=== PATIENT | female | born 1990 | race Caucasian/White ===

== ENCOUNTER 2024-12-20 10:19 | Emergency (ER) | payer OTHER, SELFPAY ==
[2024-12-20 10:32] VITALS: BP 138/83; PULSE 114; RESP 18; TEMP 36.5; O2SAT 97
--- NOTE | 2024-12-20 10:42 | ED.URI ---
HPI - URI/Sore Throat General Chief Complaint: Upper Respiratory Infection Stated Complaint: Sore Throat,Coughing, body aches Time Seen by Provider: 12/20/24 11:11 Source: patient, RN notes reviewed and old records reviewed Mode of arrival: ambulatory Limitations: no limitations History of Present Illness HPI Narrative: patient presents with complaints of 8 days of sinus pain and pressure that worsened significantly over the past 72 hours. She reports that she copious amounts of postnasal drainage causing a sore throat and nausea. Reports that she is not having any abdominal pain or actual vomiting, but nausea that she is having secondary to drainage is making it difficult for her to eat and drink. She is taking [id number] medications for her symptoms with minimal relief. She denies any injury or trauma. She voices no other concerns or complaints today. Related Data Allergies Allergy/AdvReac Type Severity Reaction Status Date / Time oxycodone Allergy Intermediate Swelling Verified 12/20/24 10:49 Review of Systems Review of Systems: All systems reviewed & are unremarkable except as noted in HPI and below Constitutional: Constitutional: Reports no additional constitutional complaints, Reports body ache(s), Reports chills, Reports headache(s) and Reports lethargy ENT: Reports system reviewed and no additional complaints, except as documented, Reports headache(s), Reports nasal congestion, Reports nasal discharge, Reports sinus pain and Reports sinus pressure Cardiovascular: Cardiovascular: Reports no additional cardiovascular complaints Respiratory: Respiratory: Reports no additional respiratory complaints Gastrointestinal: Gastrointestinal: Reports no additional gastrointestinal complaints and Reports nausea PMFSH Comments At the time of my signature, I reviewed and agree with the nursing past medical, surgical, social, and family history. There is no relevant family history pertinent to the patient complaint. Exam Const: General: cooperative, no acute distress, alert and awake Orientation/consciousness: oriented to person, oriented to place and oriented to time HENMT: Head: normal to inspection Ears: TM abnormal with fluid behind the TM bilateral Face/Nose/Sinus: sinus tenderness Mouth: Yes moist mucous membranes Throat: posterior oropharynx abnormal erythema, postnasal drainage and tonsils absent Resp: Effort & Inspection: normal respiratory effort and able to speak in complete sentences Auscultation: clear to auscultation bilaterally, no crackles, no rales, no rhonchi and no wheezes Cardio: Palpation: normal PMI Rate: regular rate Rhythm: regular rhythm Heart sounds: S1 normal heart sound present and S2 normal heart sound present GI: Auscultation: normal bowel sounds Neuro: General: oriented to person, oriented to place and oriented to time Cranial nerves: Yes CN's II-XII intact bilaterally Psych: Appearance: grossly normal Thought process: Normal thought process present Insight: Good insight present (Psych) Judgement: Good judgement present (Psych) Course Course Level of Care: Express Care Visit Vital Signs Vital signs: Vital Signs Temperature 97.7 F 12/20/24 10:32 Pulse Rate 114 H 12/20/24 10:32 Respiratory Rate 18 12/20/24 10:32 Blood Pressure 138/83 12/20/24 10:32 Pulse Oximetry 97 12/20/24 10:32 Oxygen Delivery Room Air 12/20/24 10:32 Temperature 97.7 F 12/20/24 10:32 Pulse Rate 114 H 12/20/24 10:32 Respiratory Rate 18 12/20/24 10:32 Blood Pressure 138/83 12/20/24 10:32 Pulse Oximetry 97 12/20/24 10:32 Oxygen Delivery Room Air 12/20/24 10:32 Reviewed MDM - URI/Sore Throat MDM Narrative Medical decision making narrative: History and exam consistent with sinusitis. Patient nontoxic appearing, stable for discharge home on p.o. antibiotic therapy. She is complaining of nausea. Zofran prescribed to facilitate being able to take medications properly. Discharge instructions reviewed with patient, as well as provided in writing per nursing staff. The instructions also include specific and strict return/GO TO THE ER as well as f/u information. All questions have been answered, and the patient deny any further questions with discharge and discharge plan. Some parts of this dictation were generated by voice recognition software and may contain typographical and/or grammatical inaccuracies. Differential Diagnosis Differential diagnosis: Likely upper respiratory infection, otitis media, viral infection, influenza and pharyngitis Medical Records Attestation: I reviewed the patient's medical records. Lab Data Attestation: I reviewed the patient's lab results. Labs: Lab Results 12/20/24 12/20/24 Range/Units 11:20 11:21 POC Influenza A Ag Negative (Negative) POC Influenza B Ag Negative (Negative) POC SARS CoV-2 Ag Negative (Negative) Discharge Plan Discharge Clinical Impression: Sinusitis Qualifiers: Sinusitis location: frontal Chronicity: acute Recurrence: not specified as recurrent Qualified Code(s): J01.10 - Acute frontal sinusitis, unspecified Patient Disposition: Home, Self-Care Condition: Stable Instructions: Antibiotic Form, Sinusitis (ED) Additional Instructions: Take medications as prescribed. Follow with primary care provider. Emergency department for new or worse symptoms Patient Language: [place] Prescriptions: New amoxicillin-pot clavulanate 875-125 mg tablet 1 tablet PO Q12H Qty: 14 0RF ondansetron 4 mg tablet,disintegrating 4 mg PO Q6H PRN (Reason: nausea and vomiting) Qty: 20 0RF Follow-up/Referrals: UNKNOWN,DOCTOR [Primary Care Provider] - Time of Disposition: 11:21
--- OUTSIDE RECORDS SUMMARY | 2024-12-20 11:17 | XMS_ITS | Clinical Summary ---
Author Organization [facility] Address [address] [place] [address] Care Team Providers Care Stone Operator Name Role Phone Unavailable Primary Care Provider Unavailabl e Allergies Active Allergy Reactions Criticality Noted Date Comments Meperidine Hives Low 03/10/2019 Other reaction(s): Hives Other reaction(s): Hives Other reaction(s): Hives Other reaction(s): Hives Other reaction(s): Hives Other reaction(s): Hives Other reaction(s): Hives Other reaction(s): Hives Other reaction(s): Hives Other reaction(s): Hives Other reaction(s): Hives Other reaction(s): Hives Medications [id number] C ACID ORAL Take by mouth. Active buPROPion (WELLBUTRIN) 37.5 MG tablet 04/11/2022 Acti ve buPROPion XL (WELLBUTRIN XL) 150 mg 24 hr tablet 04/12/2022 Active escitalopram (LEXAPRO) 10 mg tablet Take 1/2 tablet for 7 days then increase to 1 tablet in the morning 07/16/2021 Active Active Problems Problem Noted Date Diagnosed Date 04/01/2022 Overview (08/05/2022): Dating: uLMP, by 8 week US Rh status: pos Indication for bASA: no Genetics: low risk Anatomy: scheduled Gender: its a girl! DMS: early DMS today GBS: Tdap: Flu: [ ] Offer COVID booster BCM: B/B: Delivery planning/Pain control: Class 3 severe obesity witho ut serious comorbidity with body mass index (BMI) of 40.0 to 44.9 in adult (CMS/[facility]) 12/24/2021 Overview (08/22/2022): --Growth US q 4 wks -- echo pending --Wkly BPP after 36 wks / plan for delivery by 40 wks unless otherwise indicated Anxiety 07/09/2021 Overview (08/05/2022): Continues on wellbutrin daily Feels stable on this regimen Discussed risks and benefits of keeping on this medication because she is stable vs changing to new regimen during this stressful time Recommend keeping medication as is for now. Can discuss considerations closer to delivery again Social History Tobacco Use Types Packs/Day Years Used Date Smoking Tobacco: Never Smokeless Tobacco: Never Tobacco Cessation:Counseling Given: Not Answered Alcohol Use Standard Drinks/Week Comments Not Currently 0 (1 standard drink = 0.6 oz pur e alcohol) Comments Unknown Sex and Gender Information Value Date Recorded Sex Assigned at Not on file Legal Sex Female 11:11 AM PST Gender Identity Not on file Sexual Orientation Not on file Last Filed Vital Signs Vital Sign Reading Time Taken Comments Blood Pressure 126/72 08/20/2022 5:34 PM CDT Pulse - - Temperature - - Respiratory Rate - - Oxygen Saturation - - Inhaled Oxygen Concentration - - Weight - - Height - - Body Mass Index - - Plan of Treatment Health Maintenance Due Date Last Done Comments Periodontal Maintenance 1990 Velscope Screening 11/07/2016 05/08/2016 Dental X-Ray: Panoramic 05/09/2019 05/08/2016 Dental Oral Exam 02/03/2023 08/05/2022, 05/08/2016 Dental X-Ray: Bitewings 02/03/2023 08/05/2022 Scaling and Root Planing 09/05/2024 022, 08/22/2022, 08/20/2022, Additional history exists Dental X-Ray: Full Mouth 08/06/2025 08/05/2022 Procedures Procedure Name Priority Date/Time Associated Diagnosis Comments LL PERIODONTAL SCALING AND ROOT PLANING - ONE TO THREE TEETH PER QUADRANT Routine 08/22/2022 2:00 PM CDT INTRAORAL - COMPREHENSIVE SERIES OF RADIOGRAPHIC IMAGES Routine 08/05/2022 1:00 PM CDT COMPREHENSIVE ORAL EVALUATION - NEW OR ESTABLISHED PATIENT Routine 08/05/2022 1:00 PM CDT PANORAMIC RADIOGRAPHIC IMAGE Routine 05/08/2016 1:00 AM MDT ADJUNCTIVE PRE-DIAGNOSTIC TEST THAT AIDS IN DETECTION OF MUCOSAL ABNORMALITIES Routine 05/08/2016 1:00 AM MDT from Last 3 Months or Most Recently Relevant to Health Maintenance Insurance
--- OUTSIDE RECORDS SUMMARY | 2024-12-20 11:17 | XMS_ITS | Encounter Summary ---
Author Organization [facility] Address [address] [place] [address]. [place] [address] [place] [address] Care Team Providers Care Engineer Internship Name Role Phone Susie Montilla NP Primary Care Provider [phone] Encounter Details Date Type Department Care Team (Late st Contact Info) Description 05/20/2023 kooldiner Message Enc [facility] Family Medicine - [place] [address] [place], [place] [address] Susie Montilla, DAWOOD [address] [place] [address] Wellbutrin Refill Social History Tobacco Use Types Packs/Day Years Used Date Smoking Tobacco: Never Passive Smoke Exposure: Never Smokeless Tobacco: Never Alcohol Use Standard Drinks/Week Comments Yes 0 (1 standard drink = 0.6 oz pur e alcohol) Rare, maybe once a month Humiliation, Afraid, Rape, and Kick questionnair e Answer Date Recorded Within the last year, have y ou been afraid of your partner or ex-partner? No 10/30/2022 Within the last year, have y ou been humiliated or emotionally abused in other ways by your partner or ex-partner? No Within the last year, have y ou been kicked, hit, slapped, or otherwise physically hurt by your partner or ex-partner? No 10/30/2022 Within the last year, have y ou been raped or forced to have any kind of sexual activity by your partner or ex-partner? No 10/30/2022 Social Connection and Isolat ion Panel [NHANES] Answer Date Recorded In a typical week, how many times do you talk on the phone with family, friends, or neighbors? More than three times a week 10/30/2022 How often do you get togethe r with friends or relatives? More than three times a week 10/30/2022 How often do you attend chur ch or yarsanism services? 1 to 4 times per year 10/30/2022 Do you belong to any clubs o r organizations such as anglican groups, unions, fraternal or athletic groups, or school groups? No 10/30/2022 How often do you attend meet ings of the clubs or organizations you belong to? Never 10/30/2022 Are you , , di vorced, , never , or living with a partner? 10/30/2022 AUDIT-C Answer Date Recorded Q1: How often do you have a drink containing alcohol? Never 10/30/2022 Q2: How many drinks containi ng alcohol do you have on a typical day when you are drinking? Patient does not drink Q3: How often do you have si x or more drinks on one occasion? Never 10/30/2022 Overall Financial Resource Strain (CARDIA) Answe r Date Recorded How hard is it for you to pa y for the very basics like food, housing, medical care, and heating? Not hard at all 10/30/2022 PHQ-2 Answer Date Recorded Patient Health Questionnaire-2 Score 1 [facility] Answer Date Recorded Do you feel stress - tense, restless, nervous, or anxious, or unable to sleep at night because your mind is troubled all the time - these days? Not at all 10/30/2022 Exercise Vital Sign Answer Date Recorde d On average, how many days pe r week do you engage in moderate to strenuous exercise (like a brisk walk)? 4 days 10/30/2022 On average, how many minutes do you engage in exercise at this level? 30 min 10/30/2022 Hunger Vital Sign Answer Date Recorded Within the past 12 months, y ou worried that your food would run out before you got the money to buy more. Never true 10/30/20 22 Within the past 12 months, t he food you bought just didn't last and you didn't have money to get more. Never true 10/30/2022 PRAPARE - Transportation Answer Date Re corded In the past 12 months, has l ack of transportation kept you from medical appointments or from getting medications? No 05/2022 In the past 12 months, has l ack of transportation kept you from meetings, work, or from getting things needed for daily living? No 10/30/2022 Housing Stability Vital Sign Answer Aman e Recorded In the last 12 months, was t here a time when you were not able to pay the mortgage or rent on time? No 10/30/2022 In the last 12 months, how many places have you lived? 2 10/30/2022 In the last 12 months, was t here a time when you did not have a steady place to sleep or slept in a care home (including now)? No 10/30/2022 Depression Answer Date Recor ded Last EPDS Total Score 2 11/03/2022 Last EPDS Self Harm Result Sometimes 11/03 Comments No Sex and Gender Information Value Date Recorded Sex Assigned at Not on file Legal Sex Female 6:06 PM CDT Gender Identity Not on file Sexual Orientation Not on file documented as of this encounter Functional Status * RETIRED Are you deaf or do you have serious difficulty hearing Answer Date of Assessment Author Status No 10/30/2022 8:32 PM FAMILY PROTECTION SPECIALIST Activ e * RETIRED Are you blind or do you have serious difficulty seeing, even when wearing glasses? Answer Date of Assessment Author Status No 10/30/2022 8:32 PM FAMILY PROTECTION SPECIALIST Activ e * Do you have serious difficulty walking or climbing stairs? Answer Date of Assessment Author Status No 10/30/2022 8:32 PM Eneida Whitman RN Active * Do you have difficulty dressing or bathing? Answer Date of Assessment Author Status No 10/30/2022 8:32 PM Eneida Whitman RN Active * Because of a physical, mental, or emotional condition, do you have difficulty doing errands alone such as visiting a doctor's office or shopping? Answer Date of Assessment Author Status No 10/30/2022 8:32 PM FAMILY PROTECTION SPECIALIST Wells, Eneida C, RN Active documented as of this encounter Mental Status * Because of a physical, mental, or emotional condition, do you have serious difficulty concentrating, remembering, or making decisions? Answer Entry Date Author Status No 10/30/2022 8:32 PM FAMILY PROTECTION SPECIALIST Eneida Ulrich RN Active documented in this encounter Plan of Treatment Not on file documented as of this encounter Visit Diagnoses Not on filedocumented in this encounter Additional Health Concerns Infection Onset Date Last Indicated Resolved Time COVID-19 Rule Out 11/27/2023 11/27/2023 11/27/2023 2:24 PM FAMILY PROTECTION SPECIALIST COVID-19 Rule Out 01/21/2024 01/21/2024 01/21/2024 4:27 PM FAMILY PROTECTION SPECIALIST Assessment Noted Time PHQ-9 Depression Total Score: 11 023 11:20 AM CDT documented as of this encounter Care Teams Engineer Internship Relationship Specialty Start Date End Date Susie Montilla NP [address] [place] [address] PCP - General NURSE PRACTITIONER 03/10/23 documented as of this encounter
--- OUTSIDE RECORDS SUMMARY | 2024-12-20 11:17 | XMS_ITS | Encounter Summary ---
Author Organization [facility] Address [address] [place] [address] Care Team Providers Care Underwriting Support Specialist Name Role Phone Unavailable Primary Care Provider Unavailabl e Prior Encounters Date Type Department Care Team Description 08/22/2022 Travel 08/22/2022 2:00 PM CDT Office Visit [facility] [address] [place] [address] Roma Casey, [facility] 08/20/2022 Travel 08/20/2022 3:00 PM CDT Office Visit [facility] [address] [place] [address] Roma Casey, [facility] 08/05/2022 Travel 08/05/2022 1:00 PM CDT Office Visit [facility] [address] [place] [address] Maya Lake, [place] 07/10/2022 Travel 07/10/2022 12:00 PM CDT Office Visit [facility] [address], [address] [place] [address] Brie Rivera, DMD 12/13/2019 Converted 13x Documents [facility] [address] [place] [phone] <No scans attached> 12/13/2019 Converted CPS Chart Documents [facility] [address], [address] [place] [phone] <No scans attached> 12/13/2019 Converted CPS Chart Documents [facility] [address], [address] [place] [phone] <No scans attached> 12/13/2019 Converted 13x Documents [facility] [address] [place] [phone] <No scans attached> Last Filed Vital Signs Vital Sign Reading Time Taken Comments Blood Pressure 126/72 08/20/2022 5:34 PM CDT Pulse - - Temperature - - Respiratory Rate - - Oxygen Saturation - - Inhaled Oxygen Concentration - - Weight - - Height - - Body Mass Index - - Plan of Treatment Not on file Procedures Procedure Name Priority Date/Time Associated Diagnosis Comments TOPICAL APPLICATION OF FLUORIDE VARNISH Routine 08/22/2022 2:00 PM CDT UL PERIODONTAL SCALING AND ROOT PLANING - ONE TO THREE TEETH PER QUADRANT Routine 08/22/2022 2:00 PM CDT LL PERIODONTAL SCALING AND ROOT PLANING - ONE TO THREE TEETH PER QUADRANT Routine 08/22/2022 2:00 PM CDT ORAL HYGIENE INSTRUCTIONS Routine 2021 3:00 PM CDT LR PERIODONTAL SCALING AND ROOT PLANING - ONE TO THREE TEETH PER QUADRANT Routine 08/20/2022 3:00 PM CDT UR PERIODONTAL SCALING AND ROOT PLANING - ONE TO THREE TEETH PER QUADRANT Routine 08/20/2022 3:00 PM CDT INTRAORAL PHOTO Routine 08/05/2022 1:00 PM CDT INTRAORAL PHOTO Routine 08/05/2022 1:00 PM CDT INTRAORAL PHOTO Routine 08/05/2022 1:00 PM CDT INTRAORAL PHOTO Routine 08/05/2022 1:00 PM CDT INTRAORAL - COMPREHENSIVE SERIES OF RADIOGRAPHIC IMAGES Routine 08/05/2022 1:00 PM CDT COMPREHENSIVE ORAL EVALUATION - NEW OR ESTABLISHED PATIENT Routine 08/05/2022 1:00 PM CDT 31 CEREC CROWN Routine 08/05/2022 12:00 AM CDT 31 ROOT CANAL Routine 08/05/2022 12:00 AM CDT BITEWING - SINGLE RADIOGRAPHIC IMAGE Routine 07/10/2022 12:00 PM CDT ADDITIONAL X-RAY Routine 07/10/2022 12:0 0 PM CDT LIMITED ORAL EVALUATION - PROBLEM FOCUSED Routine 07/10/2022 12:00 PM CDT MISSED APPOINTMENT Routine 11/26/2016 1: 00 AM [facility] INTEL RECRUITER CONSULTATION Routine 2015 1:00 AM MDT ADJUNCTIVE PRE-DIAGNOSTIC TEST THAT AIDS IN DETECTION OF MUCOSAL ABNORMALITIES Routine 05/08/2016 1:00 AM MDT ORAL HYGIENE INSTRUCTIONS Routine 2015 1:00 AM MDT PROPHYLAXIS - ADULT Routine 05/08/2016 1 :00 AM MDT COMPREHENSIVE ORAL EVALUATION - NEW OR ESTABLISHED PATIENT Routine 05/08/2016 1:00 AM MDT PANORAMIC RADIOGRAPHIC IMAGE Routine 05/08/2016 1:00 AM MDT BITEWINGS - FOUR RADIOGRAPHIC IMAGES Routine 05/08/2016 1:00 AM MDT SINGLE X-RAY Routine 05/08/2016 1:00 AM MDT SINGLE X-RAY Routine 05/08/2016 1:00 AM MDT SINGLE X-RAY Routine 05/08/2016 1:00 AM MDT SINGLE X-RAY Routine 05/08/2016 1:00 AM MDT SINGLE X-RAY Routine 05/08/2016 1:00 AM MDT SINGLE X-RAY Routine 05/08/2016 1:00 AM MDT INTRAORAL PHOTO Routine 05/08/2016 1:00 AM MDT INTRAORAL PHOTO Routine 05/08/2016 1:00 AM MDT INTRAORAL PHOTO Routine 05/08/2016 1:00 AM MDT INTRAORAL PHOTO Routine 05/08/2016 1:00 AM MDT INTRAORAL PHOTO Routine 05/08/2016 1:00 AM MDT INTRAORAL PHOTO Routine 05/08/2016 1:00 AM MDT INTRAORAL PHOTO Routine 05/08/2016 1:00 AM MDT INTRAORAL PHOTO Routine 05/08/2016 1:00 AM MDT INTRAORAL PHOTO Routine 05/08/2016 1:00 AM MDT INTRAORAL PHOTO Routine 05/08/2016 1:00 AM MDT CANCELLED APPOINTMENT Routine 05/01/2016 1:00 AM MDT Visit Diagnoses Not on file Insurance PPO
--- OUTSIDE RECORDS SUMMARY | 2024-12-20 11:17 | XMS_ITS | Encounter Summary ---
Author Organization [facility] Address [address] [place] [address]. [place] [address] [place] [address] Care Team Providers Care Hospitalist Name Role Phone Susie Montilla NP Primary Care Provider [phone] Encounter Details Date Type Department Care Team (Late st Contact Info) Description 01/26/2024 Curtis Berryman & Son Cremation Message Enc [facility] Family Medicine - [place] [address] [place], [place] [address] Susie Montilla, DAWOOD [address] [place] [address] Follow up Social History Tobacco Use Types Packs/Day Years [...] often do you attend chur ch or roman catholic services? 1 to 4 times per year 10/30/2022 Do you belong to any clubs o r organizations such as oriental orthodox groups, unions, fraternal or athletic groups, or [...] Recorded Patient Health Questionnaire-2 Score 1 03/12/2023 [facility] Answer Date [...] the money to buy more. Never true 12/07/20 22 Within the past 12 months, t [...] place to sleep or slept in a senior care (including now)? No 10/30/2022 Depression Answer Date [...] Assessment Author Status No 10/30/2022 8:32 PM C APPLICATION DEVELOPER Activ e * RETIRED Are you blind or do you have serious difficulty seeing, even when wearing glasses? Answer Date of Assessment Author Status No 10/30/2022 8:32 PM C APPLICATION DEVELOPER Activ e * Do you have serious [...] Assessment Author Status No 10/30/2022 8:32 PM C APPLICATION DEVELOPER Wells, Eneida C, RN Active documented as of this encounter Mental Status * Because of a physical, mental, or emotional condition, do you have serious difficulty concentrating, remembering, or making decisions? Answer Entry Date Author Status No 10/30/2022 8:32 PM Eneida Whitman, RN Active documented in this encounter Plan of Treatment Not on file documented as of this encounter Visit Diagnoses Not on filedocumented in this encounter Additional Health Concerns Assessment Noted Time PHQ-9 Depression Total Score: 11 023 11:20 AM CDT documented as of this encounter Care Teams Hospitalist Relationship Specialty Start Date End Date Susie Montilla NP [address] [place] [address] PCP - General NURSE PRACTITIONER 03/10/23 documented as of this encounter
--- OUTSIDE RECORDS SUMMARY | 2024-12-20 11:17 | XMS_ITS | CCD ---
Author Organization [facility] Address [address] [place] [address] Care Team Providers Care Intrusion Analyst Name Role Phone Unavailable Primary Care Provider Unavailabl e Allergies Active Allergy Reactions Criticality Noted Date Comments Meperidine Hives Low 03/10/2019 Other reaction(s): Hives Other reaction(s): Hives Other reaction(s): Hives Other reaction(s): Hives Other reaction(s): Hives Other reaction(s): Hives Other reaction(s): Hives Other reaction(s): Hives Other reaction(s): Hives Other reaction(s): Hives Other reaction(s): Hives Other reaction(s): Hives Medications [id number] C ACID ORAL Take by mouth. Active [...] (BMI) of 40.0 to 44.9 in adult (CMS/[facility]) 12/24/2021 Overview (08/22/2022): --Growth US q [...] Given: Not Answered Alcohol Use Standard Drinks/Week Not Currently 0 (1 standard drink = 0.6 oz pure alcohol) Comments Unknown Sex and Gender Information [...]
--- OUTSIDE RECORDS SUMMARY | 2024-12-20 11:17 | XMS_ITS ---
Author Organization [facility] Address [address] [place] [address] Care Team Providers Care Car Pre Cooler Name Role Phone Unavailable Unavailable Unavailable Surgery Details Not on file Complications Check Surgery Details section. Procedure Estimated Blood Loss Check Surgery Details section. Procedure Findings Check Surgery Details section. Procedure Specimens Taken Check Surgery Details section.
--- OUTSIDE RECORDS SUMMARY | 2024-12-20 11:17 | XMS_ITS | Encounter Summary ---
Author Organization [facility] Address [address] [place] [address]. [place] [address] [place] [address] Care Team Providers Care Senior Engineer Name Role Phone Bre Sanchez STORE STOCKER Primary Care Provider [phone] Susie Montilla STORE STOCKER Primary Care Provider [phone] Encounter Details Date Type Department Care Team (Late st Contact Info) Description 11/14/2022 [employer] Message [employer] [facility] Symptom[employer] [address] [place] [address] [place], [facility] Provider Proof of Name Change Needed Social History Tobacco Use Types Packs/Day Years Used Date Smoking Tobacco: Never Smokeless Tobacco: Never Alcohol Use Standard Drinks/Week Comments Never 0 (1 standard drink = 0.6 oz pur e alcohol) Humiliation, Afraid, Rape, and Kick questionnair e [...] 10/30/2022 How often do you attend chur or adventist services? 1 to 4 times per year 10/30/2022 Do you belong to any clubs o r organizations such as rastafarian groups, unions, fraternal or athletic groups, or [...] at all 10/30/2022 PHQ-2 Answer Date Recorded PHQ-2 Score 0 03/15/2019 [facility] - Occupational Stress Questionnaire Answer Date [...] place to sleep or slept in a jail (including now)? No 10/30/2022 Depression Answer Date Recor ded Last EPDS Total Score 2 11/03/2022 Last EPDS Self Harm Result Sometimes 11/03 Comments No Sex and Gender Information Value Date Recorded Sex Assigned at Not on file Legal Sex Female 6:06 PM CDT Gender Identity Not on file Sexual Orientation Not on file COVID-19 Exposure Response Date Recorded In the last 10 days, have yo u been in contact with someone who was confirmed or suspected to have Coronavirus/COVID-19? No / Unsure 10/30/2022 8:20 PM GL ACCOUNTANT documented as of this encounter Functional Status * RETIRED Are you deaf or do you have serious difficulty hearing Answer Date of Assessment Author Status No 10/30/2022 8:32 PM GL ACCOUNTANT Activ e * RETIRED Are you blind or do you have serious difficulty seeing, even when wearing glasses? Answer Date of Assessment Author Status No 10/30/2022 8:32 PM GL ACCOUNTANT Activ e * Do you have serious difficulty walking or climbing stairs? Answer Date of Assessment Author Status No 10/30/2022 8:32 PM GL ACCOUNTANT Eneida Ulrich RN Active * Do you have difficulty dressing or bathing? Answer Date of Assessment Author Status No 10/30/2022 8:32 PM GL ACCOUNTANT Eneida Ulrich RN Active * Because of a physical, mental, or emotional condition, do you have difficulty doing errands alone such as visiting a doctor's office or shopping? Answer Date of Assessment Author Status No 10/30/2022 8:32 PM GL ACCOUNTANT Eneida Ulrich RN Active documented as of this encounter Mental Status * Because of a physical, mental, or emotional condition, do you have serious difficulty concentrating, remembering, or making decisions? Answer Entry Date Author Status No 10/30/2022 8:32 PM GL ACCOUNTANT Eneida Ulrich RN Active documented in this encounter Plan of Treatment Not on file documented as of this encounter Visit Diagnoses Not on filedocumented in this encounter Additional Health Concerns Infection Onset Date Last Indicated Resolved Time COVID-19 Rule Out 11/27/2023 11/27/2023 11/27/2023 2:24 PM GL ACCOUNTANT COVID-19 Rule Out 01/21/2024 01/21/2024 01/21/2024 4:27 PM GL ACCOUNTANT Assessment Noted Time PHQ-9 Depression Total Score: 4 03/10/20 19 12:27 PM CDT documented as of this encounter Care Teams Senior Engineer Relationship Specialty Start Date End Date Bre Sanchez NP [address] [place] [place] [address] PCP - General Nurse Practitioner Family 03/09/1902/22 Susie Montilla NP [address] [facility] [address] [place] [address] PCP - General NURSE PRACTITIONER 03/10/23 documented as of this encounter
--- OUTSIDE RECORDS SUMMARY | 2024-12-20 11:18 | XMS_ITS | Referral Summary ---
Author Organization [facility] Address [address] [place] [address] Care Team Providers Care Watch Repairer Apprentice Name Role Phone Unavailable Primary Care Provider Unavailabl e Allergies Active Allergy Reactions Criticality Noted Date Comments Meperidine Hives Low 03/10/2019 Other reaction(s): Hives Other reaction(s): Hives Other reaction(s): Hives Other reaction(s): Hives Other reaction(s): Hives Other reaction(s): Hives Other reaction(s): Hives Other reaction(s): Hives Other reaction(s): Hives Other reaction(s): Hives Other reaction(s): Hives Other reaction(s): Hives Medications [id number] C ACID ORAL Take by mouth. Active [...] (BMI) of 40.0 to 44.9 in adult (CMS/[facility]) 12/24/2021 Overview (08/22/2022): --Growth US q 4 [...] Most Recently Relevant to Health Maintenance Insurance [facility] PPO
--- OUTSIDE RECORDS SUMMARY | 2024-12-20 11:18 | XMS_ITS | Clinical Summary ---
Author Organization [facility] Address [address] [place] [address]. [place] [address] [place] [address] Care Team Providers Care Doctor Of Naprapathic Medicine Name Role Phone Susie Montilla NP Primary Care Provider [phone] Allergies Active Allergy Reactions Criticality Noted Date Comments Meperidine Hives 03/10/2019 Oxycodone-Acetaminophen Swelling,Redness 2021 Skin redness and lip swelling Medications buPROPion XL (WELLBUTRIN XL) 150 MG 24 hr tabletIndication s:Generalized anxiety disorder Take 1 tablet (150 mg total) by mouth daily. 90 tablet 1 4 Active scopolamine (TRANSDERM-SCOP) 1 MG/3DAYS patchIndications :Motion sickness, initial encounter Place 1 patch onto the skin every third day. 10 patch 4 Active Additional Information Patient not taking.Reported on 01/21/2024 ondansetron (ZOFRAN) 4 MG tabletIndication s:Nausea and vomiting, unspecified vomiting type Take 1 tablet (4 mg total) by mouth every 8 (eight) hours as needed. 20 tablet 4 Active Active Problems Problem Noted Date Diagnosed Date anxiety ([facility]/HCC) 03/12/2023 depression 03/12/2023 Obesity (BMI 35.0-39.9 without comorbidity) 02/22 Vaginal delivery ([facility]/HCC) 11/02/2022 Normal course ([facility]) 11/02/2022 Preeclampsia ([facility]/HCC) 11/02/2022 -induced hypertension in third trimeste r ([facility]HS/HCC) 10/30/2022 Resolved Problems Problem Noted Date Diagnosed Date Resolved Date ([facility]) 10/30/2022 11/02/20 22 39 weeks gestation of ([facility]) 10/30/2022 11/02/2022 Excessive growth affec ting management of mother in third trimester, antepartum ([facility]) 10/30/2022 11/02/2022 Immunizations Name Administration Dates Next Due Tdap (Generic) 08/14/2022,05/08/2021 Family History Medical History Relation Comments Cancer Father Testicular cancer Father Breast Cancer Maternal Aunt Cancer Maternal Aunt Cancer Paternal Grandfather Relation Status Comments Father Maternal Aunt Paternal Grandfather Social History Tobacco Use Types Packs/Day Years Used Date Smoking Tobacco: Never Passive Smoke Exposure: Never Smokeless Tobacco: Never Tobacco Cessation:Counseling Given: No Alcohol Use Standard Drinks/Week Comments Yes 0 [...] week 10/30/2022 How often do you attend [facility] or orthodoxy services? 1 to 4 times per year 10/30/2022 Do you belong to any clubs o r organizations such as spiritism groups, unions, fraternal or athletic groups, or [...] Recorded Patient Health Questionnaire-2 Score 1 03/12/2023 [facility] - Occupational Stress Questionnaire Answer Date Recorded [...] place to sleep or slept in a intermediate (including now)? No 10/30/2022 Depression Answer Date [...] Sign Reading Time Taken Comments Blood Pressure 122/88 01/21/2024 4:00 PM MANAGER REPORTING Pulse 90 01/21/2024 3:45 PM MANAGER REPORTING Temperature 37 ??C (98.6 ??F) 01/21/2024 3:45 PM MANAGER REPORTING Respiratory Rate 18 01/21/2024 3:45 PM MANAGER REPORTING Oxygen Saturation 97% 01/21/2024 3:45 PM MANAGER REPORTING Inhaled Oxygen Concentration - - Weight 117.8 kg (259 lb 12.8 oz) 01/21/2024 3:45 PM MANAGER REPORTING Height 177.8 cm (5' 10 ) 01/21/2024 3:45 PM MANAGER REPORTING Body Mass Index 37.28 01/21/2024 3:45 PM MANAGER REPORTING Plan of Treatment Health Maintenance Due Date Last Done Comments Cervical Cancer Screening Pa p Smear (Age 30 to 64) Every 3 Years 1990 Hepatitis B Vaccines (1 of 3 - 19+ 3-dose series) 2009 Cervical Cancer Screening Pa p with HPV Testing (Age 30 to 64) Every 5 Years 2020 Cervical Cancer Screening wi th HPV 2020 Annual Physical 03/12/2024 03/12/2023 COVID-19 Vaccine ( - 2023-2 5 season) 2024 07/25/2021 Influenza Adult (#1) 2024 PHQ-2 (Physician [place]) 11/24/2024 03/12/2023 DTaP, Tdap and Td Vaccines ( 3 - Td or Tdap) 08/14/2032 08/14/2022, 05/08/2021 Hepatitis C Completed 10/30/2022 HPV Vaccines Aged Out No longer eligi ble based on patient's age to complete this topic Meningococcal B Vaccine Aged Out No l onger eligible based on patient's age to complete this topic Meningococcal Vaccine Aged Out No rocio debra eligible based on patient's age to complete this topic Pneumococcal Vaccine: Pediatrics (0 to 5 Years) and At-Risk Patients (6 to 64 Years) Aged Out No longer eligible b ased on patient's age to complete this topic RSV Immunizations Under 20 Months Aged Out No longer eligible b ased on patient's age to complete this topic Procedures Procedure Name Priority Date/Time Associated Diagnosis Comments HEPATITIS C ANTIBODY Routine 10/30/2022 10:32 PM MANAGER REPORTING from Last 3 Months or Most Recently Relevant to Health Maintenance Results * HEPATITIS C ANTIBODY W/REFLEX (10/30/2022 10:32 PM MANAGER REPORTING) HEPATITIS C AB NON-REACTI VE NON-REACTI VE 10/31/2022 4:11 AM MANAGER REPORTING [facility] 10/30/2022 10:3 2 PM MANAGER REPORTING Jenise Kaiser MD LABORATORY Final Res ult [facility] [address] [place] [address], [place] [phone] from Last 3 Months or Most Recently Relevant to Health Maintenance Insurance [employer] Advance Directives * Full Code (Latest Code Status on File) Date Activated Date Inactivated Comments 10/31/2022 9:56 AM 11/02/2022 3:13 AM * Full Code Date Activated Date Inactivated Comments 10/30/2022 10:08 PM 10/31/2022 9:56 AM Care Teams Doctor Of Naprapathic Medicine Relationship Specialty Start Date End Date Susie Montilla NP [address] [place] [address] PCP - General NURSE PRACTITIONER 03/10/23
[2024-12-20 11:22] LABS: EDCOVIDSCREEN Negative (Negative)
[2024-12-20 11:22] LABS: EDINFLUASCREEN Negative (Negative); EDINFLUBSCREEN Negative (Negative)
== END 2024-12-20 11:26 | disposition home or self-care (01) ==
PROVIDERS: Emergency Provider Nurse Practitioner Family
DX: J01.10 Acute frontal sinusitis, unspecified (principal); Z20.822 Contact with and (suspected) exposure to COVID-19
CPT/HCPCS: 87426; 87804; 99203; G0463

== ENCOUNTER 2025-03-12 10:23 | Emergency (ER) | payer OTHER, SELFPAY ==
--- OUTSIDE RECORDS SUMMARY | 2025-03-12 10:25 | XMS_ITS | Encounter Summary ---
Author Organization [facility] Address [facility] [place] [address] Care Team Providers Care Cheese Packer Name Role Phone Susie Montilla NP Primary Care Provider [phone] Encounter Details Date Type Department Care Team (Late st Contact Info) Description 05/20/2023 [employer] Message Enc [facility] Family Medicine - [place] [address] [facility] [address] [place] [address] Susie Montilla NP [address] [place] [address] Wellbutrin Refill Social History Tobacco Use Types [...] often do you attend chur ch or jain services? 1 to 4 times per year 10/30/2022 Do you belong to any clubs o r organizations such as restoration groups, unions, fraternal or athletic groups, or [...] Recorded Patient Health Questionnaire-2 Score 1 03/12/2023 [facility] - Occupational Stress Questionnaire Answer Date Recorded [...] Assessment Author Status No 10/30/2022 8:32 PM RN COMPLEX CARE Activ e * RETIRED Are you blind or do you have serious difficulty seeing, even when wearing glasses? Answer Date of Assessment Author Status No 10/30/2022 8:32 PM RN COMPLEX CARE Activ e * Do you have serious [...] 10/30/2022 8:32 PM Eneida Whitman RN Active documented as of this encounter Mental Status * Because of a physical, mental, or emotional condition, do you have serious difficulty concentrating, remembering, or making decisions? Answer Entry Date Author Status No 10/30/2022 8:32 PM RN COMPLEX CARE Eneida Ulrich RN Active documented in this encounter Plan of Treatment Not on file documented as of this encounter Visit Diagnoses Not on filedocumented in this encounter Additional Health Concerns Infection Onset Date Last Indicated Resolved Time COVID-19 Rule Out 11/27/2023 11/27/2023 11/27/2023 2:24 PM RN COMPLEX CARE COVID-19 Rule Out 01/21/2024 01/21/2024 01/21/2024 4:27 PM RN COMPLEX CARE Assessment Noted Time PHQ-9 Depression Total Score: 11 023 11:20 AM CDT documented as of this encounter Care Teams Cheese Packer Relationship Specialty Start Date End Date Susie Montilla NP [address] [place] [address] [place] [address] PCP - General NURSE PRACTITIONER 03/10/23 documented as of this encounter
--- OUTSIDE RECORDS SUMMARY | 2025-03-12 10:25 | XMS_ITS | Encounter Summary ---
Author Organization [facility] Address [address] [place] [address] Care Team Providers Care Head Concierge Name Role Phone Susie Montilla NP Primary Care Provider [phone] Encounter Details Date Type Department Care Team (Late st Contact Info) Description 01/26/2024 uliket Message Enc [facility] Family Medicine - [place] [address] [facility] [address] [place] [address] Susie Montilla NP [address] [place] [address] Follow up Social History Tobacco Use Types [...] How often do you attend chur or faith services? 1 to 4 times per year 10/30/2022 Do you belong to any clubs o r organizations such as jehovah's witness groups, unions, fraternal or athletic groups, or [...] Recorded Patient Health Questionnaire-2 Score 1 03/12/2023 [facility] - Occupational [...] Assessment Author Status No 10/30/2022 8:32 PM TIRE DESIGN ENGINEER Activ e * RETIRED Are you blind or do you have serious difficulty seeing, even when wearing glasses? Answer Date of Assessment Author Status No 10/30/2022 8:32 PM TIRE DESIGN ENGINEER Activ e * Do you have serious [...] Date Author Status No 10/30/2022 8:32 PM TIRE DESIGN ENGINEER Eneida Ulrich, RN Active documented in this encounter Plan of Treatment Not on file documented as of this encounter Visit Diagnoses Not on filedocumented in this encounter Additional Health Concerns Assessment Noted Time PHQ-9 Depression Total Score: 11 023 11:20 AM CDT documented as of this encounter Care Teams Head Concierge Relationship Specialty Start Date End Date Susie Montilla NP [address] [place] [address] [place] [address] PCP - General NURSE PRACTITIONER 03/10/23 documented as of this encounter
--- OUTSIDE RECORDS SUMMARY | 2025-03-12 10:25 | XMS_ITS | Data Portability ---
Author Organization [employer] , [facility] Address [address] [place] [address] Care Team Providers Care Filter Assembler Name Role Phone [facility] Paste Plant Supervisor Assessment Encounter Date Assessment Date Assessment LastModified by Organization Details LastModified Time 11/21/2022 11/21/2022 Patient is an established patient, she is here for 2 week visit. Her course was uncomplicated. Denies pelvic pain. Denies any acute concerns. Baby and Mom are doing good. Home life is going well. She has not had intercourse since delivery Emotions: Denies feelings of depression or anxiety. Lochia: Bled for 1.5 weeks. Scant spotting now. No odor. Uterus: Involuted Bowl and Bladder: WNL- has been taking stool softener prn Perineum: Denies redness, edema, or discharge. Hemorrhoids: Denies Breasts: Pt is breast and bottle feeding. Denies pain, warmth, or firmness. BP's at home have been 120/70's. Denies Headaches, blurry vision, RUQ pain. [email or web address] Not available 11/25/2022 18:41:06 02/18/2023 02/18/2023 Pt is 14 weeks . She delivered 11/12/2022 Vaginal Delivery. Pt reports she is having a lot of anxiety. She is on Bupropion 300 mg daily. She reports this started 6 weeks ago. She declines depression s/s- states she has no issues getting up and doing things. She reports severe anxiety regarding baby. An example is the accounting bookkeeper told her to get a humidifier for the babies room- she didn't because she was so anxious thinking about mold growing. She only came to her 2 week because she is having a hard time driving- she states she is thinking of the worst case scenarios. Denies thoughts of harm to herself or baby. She was very tearful. Sent case to Uriel to discuss Medication Management and appointment. Pt voiced understanding and is okay with POC. [email or web address] Not available 02/20/2023 14:15:38 Plan of Treatment Reminders Order Date Submit Date Provider Last Modified By Organization Details Last Modified Time Details Appointments None recorded. Lab None recorded. Referral behavioral health referral 2022 023 [email or web address] [facility], [address] [facility], [place], [address], 16:54:30 Procedures None recorded. Surgeries None recorded. Imaging US, obstetric, follow-up 2021 022 [email or web address] Not available 10:25:57 Medication Orders None recorded. Patient TargetsNo targets recorded. Patient Instructions Encounter Date Encounter Id Patient Instructions Last Modified By Organization Details Last Modified Time 11/21/2022 [id number] contraception information [email or web address] Not available 11/21/2022 14:41:21 edinburgh depression scale* [email or web address] Not available 12/02/2022 16:42:18 02/18/2023 [id number] contraception information [email or web address] Not available 02/18/2023 17:04:32 edinburgh depression scale* kbritsch Not available 02/19/2023 11:42:13 depression after childbirth: care instructions [email or web address] Not available 02/18/2023 17:04:32 Reason for Referral Behavioral Health Referral f or Mixed anxiety and depressive disorder Referring Physician: Uriel Dunham, PACKAGING MECHANIC, Encounter Date: 02/26/2023 Results Created Date Observation Date Name Description Value Unit Range Abnormal Flag Note LastModifiedBy Organization Detail LastModifiedTime 09/28/20 22 09/28/2022 UA REFLE X TO MICRO specimen type URINE CLEAN CATCH Not Available [facility] (Lab) [address], [place], [address], 09/28/2022 12:12:54 09/28/20 22 09/28/2022 UA REFLE X TO MICRO color LIGHT YELLOW Not Available [facility] (Lab) [place], [address], 09/28/2022 12:12:54 09/28/20 22 09/28/2022 UA REFLE X TO MICRO clarity CLEAR Not Available [facility] (Lab) [address] [place], [address], 09/28/2022 12:12:54 09/28/2009/28/2022 UA REFLE X TO MICRO specific gravity 1.017 1.001- 1.030 Not Available [facility] (Lab) [place], [address], 09/28/2022 12:12:54 09/28/20 22 09/28/2022 UA REFLE X TO MICRO pH, urine 6.5 5.0-9. 0 Not Available [facility] (Lab) [place], [address], 09/28/2022 12:12:54 09/28/20 22 09/28/2022 UA REFLE X TO MICRO leukocytes NEGATI VE neg Not Available [facility] (Lab) [place], [address], 09/28/2022 12:12:54 09/28/20 22 09/28/2022 UA REFLE X TO MICRO nitrite NEGATI VE neg Not Available [facility] (Lab) [place], [address], 09/28/2022 12:12:54 09/28/20 22 09/28/2022 UA REFLE X TO MICRO protein 10 mg/dL <30 Not Available [facility] (Lab) [address] [place], [address], 09/28/2022 12:12:54 09/28/20 22 09/28/2022 UA REFLE X TO MICRO glucose NORMAL mg/dL norm Not Available [facility] (Lab) [address] [place], [address], 09/28/2022 12:12:54 09/28/20 22 09/28/2022 UA REFLE X TO MICRO ketone TRACE mg/dL neg abnormal Not Available [facility] (Lab) [address] [place], [address], 09/28/2022 12:12:54 09/28/20 22 09/28/2022 UA REFLE X TO MICRO urobilinogen NORMAL mg/dL norm Not Available [facility] (Lab) [address] [facility], [place], [address], 09/28/2022 12:12:54 09/28/20 22 09/28/2022 UA REFLE X TO MICRO bilirubin NEGATI VE mg/dL neg Not Available [facility] (Lab) [place], [address], 09/28/2022 12:12:54 09/28/20 22 09/28/2022 UA REFLE X TO MICRO blood NEGATI VE neg Not Available [facility] (Lab) [place], [address], 09/28/2022 12:12:54 09/28/20 22 09/28/2022 DRUGS OF ABUSE PANEL , URINE amphetamines , urine NEGATI VE neg Not Available [facility] (Lab) [place], [address], 09/28/2022 12:21:35 09/28/20 22 09/28/2022 DRUGS OF ABUSE PANEL , URINE barbituates, urine NEGATI VE neg Not Available [facility] (Lab) [place], [address], 09/28/2022 12:21:35 09/28/20 22 09/28/2022 DRUGS OF ABUSE PANEL , URINE benzodiazapi marisol, urine NEGATI VE neg Not Available [facility] (Lab) [place], [address], 09/28/2022 12:21:35 09/28/20 22 09/28/2022 DRUGS OF ABUSE PANEL , URINE cannabinoids /THC, urine NEGATI VE neg Not Available [facility] (Lab) [place], [address], 09/28/2022 12:21:35 09/28/20 22 09/28/2022 DRUGS OF ABUSE PANEL , URINE cocaine, urine NEGATI VE neg Not Available [facility] (Lab) [address] [facility], [place], [address], 09/28/2022 12:21:35 09/28/20 22 09/28/2022 DRUGS OF ABUSE PANEL , URINE methadone, urine NEGATI VE neg Not Available [facility] (Lab) [place], [address], 09/28/2022 12:21:35 09/28/20 22 09/28/2022 DRUGS OF ABUSE PANEL , URINE opiates, urine NEGATI VE neg Not Available [facility] (Lab) [place], [address], 09/28/2022 12:21:35 09/28/20 22 09/28/2022 DRUGS OF ABUSE PANEL , URINE phencyclidin es, urine NEGATI VE neg NOTE: RESUL TS OF THIS DRUG ANYAE N SHOBORIS D BE USED FOR MEDIC AL PURPO SES ONLY AND NOT FOR LEGAL OR EMPLO YMENT PURPO SES. POSIT CONNIE RESUL TS ARE NOT CONFI RMED. MEDIC ATION S CONTA INING EPHED RINE MAY CAUSE FALSE POSIT CONNIE AMPHE TAMIN E CALL [phone], LAB, TO REQUE ST CONFI RMATI ON TESTI NG. IF CREAT ININE IS <40 mg/dL . RECOL LECTI ON IS SUGGE STED. AMPHE TAMIN E- 500 NG/ML OSEAS TURAT E- 200 NG/ML BENZO DIAZE PINES - 200 NG/ML THC- 50 NG/ML COCAI NE- 150 NG/ML METHA DONE- 300 NG/ML OPIAT E- 300 MG/ML PCP- 25 NG/ML Not Available [facility] (Lab) [place], [address], 09/28/2022 12:21:35 09/28/20 22 09/28/2022 DRUGS OF ABUSE PANEL , URINE creatinine, urine 148.0 mg/dL 28-217 Not Available [facility] (Lab) [place], [address], 09/28/2022 12:21:35 10/09/20 22 10/12/2022 STREP TOCOC CUS, GROUP B CULTU RE streptococcu s, group B culture SEE NOTE STREP TOCOC CUS, GROUP B CULTU RE Micro Numbe r: [id number] Test Statu s: Final Speci men Sourc e: Reoct ovang ial Speci men Quali ty: Adequ ate Resul t: No group B Strep tococ cus isola blayne Note per CDC guide lines optim al recov sharon is achie cherie by swabb ing both the lower vagin a and rectu m (thro ugh the anal sphin cter) . Not Available [facility] [facility] [address], [place], [address], 10/12/2022 11:04:42 11/01/20 22 11/01/2022 MAGNE SIUM magnesium 4.4 mg/dL 1.8-2. 4 high Not Available [facility] (Lab) [address] [facility], [place], [address], 11/01/2022 14:01:02 11/02/20 22 11/05/2022 LESLI SURGI ROXANA PATHO LOGY path report [facility] [address] [facility] [place] [place] [address] Phone : [phone] Fax: Depar tment of Patho logy Patho logy Repor t SURGI ROXANA FINAL REPOR T Patie nt Name: MONICA MATTHEWS vamshi# : [id number] : 1990 (Age: 31) Locat ion: [facility] IF Gende r: F Colle cted Date: 11/02 Med Rec #: [id number] Date Recei cherie: 11/04 Date Repor blayne: 11/05 Provi sudhir: ANITHA YAO MUSEUM REGISTRAR ISSA BURTON CNM Speci men(s ) Place nta and Umbil ical Cord Final Patho logic Diagn osis PLACE NTA AND UMBIL ICAL CORD, VAGIN AL DELIV SHARON: [address] NTA (NORM AL WEIGH T FOR GESTA MAXINE L AGE) THREE -VESS EL UMBIL ICAL CORD WITH MINIM AL ACUTE VASCU LITIS MEMBR ANES WITH ACUTE CHORI OAMNI ONITI S MATUR E VILLO US MORPH OLOGY Alicja ctron icall y Kayleigh d Out ANITHA JOEL MD Patho logis t SMO:l c Micro scopi c Descr iptio n: Micro scopi c exami natio n subst antia evelin above diagn osis. Clini roxana Histo ry Pre-e clamp lia, 39w4d ega Gross Descr iptio n Recei cherie is a singl e forma sanjuana-f illed conta iner label ed with the patie nt's name (Eloisa Moreno ), date of (11/25 1), colle cted 11/02 at 1:29, and addit ional ly label ed plac enta. The speci men consi sts of a singl eton place nta, measu ring 25.0 x 20.5 x 4.0 cm with an eccen trica lly inser blayne umbil ical cord measu ring 23.5 cm in lengt h with a diame ter up to 1.8 cm. Secti oning of the cord revea ls an under lying false knot. There are no ident ifiab le true knots . Secti oning of the remai kary cord revea ls three vesse ls. The membr anes are purpl e-blakely semit ransl ucent and have fredy nal inser tion. The surfa ce is purpl e-blakely with corine l to sligh tly narro wed vascu latur e. The mater nal surfa ce is red-t an with intac t cotyl edons . The place ntal disc is sligh tly irreg ular in shape . The marco ed disc weigh s 541 grams . Secti oning of the disc revea ls a red-t an homog eneou s cut surfa ce. Repre senta tive secti ons are submi tted as follo ws: 1 - Membr ane roll 2 - Repre senta tive cord to inclu de repre senta tive false knot 3-5 - Repre senta tive full- thick ness place ntal disc :odilia simental Fee Code( s): 88082 Not Available [facility] (Lab) [place], [address], 11/05/2022 16:41:27 11/03/20 22 11/03/2022 CBC WITH DIFF WBC 10.6 x10'3 /uL 4.5-11 .0 Not Available [facility] (Lab) [place], [address], 11/03/2022 07:36:16 11/03/20 22 11/03/2022 CBC WITH DIFF RBC 3.50 x10'6 /uL 4.20-5 .40 low Not Available [facility] (Lab) [address], [place], [address], 11/03/2022 07:36:16 11/03/20 22 11/03/2022 CBC WITH DIFF hemoglobin 10.7 g/dL 12.0-1 6.0 low Not Available [facility] (Lab) [address], [place], [address], 11/03/2022 07:36:16 11/03/20 22 11/03/2022 CBC WITH DIFF hematocrit 32.5 % 38.0-4 8.0 low Not Available [facility] (Lab) [address], [place], [address], 11/03/2022 07:36:16 11/03/20 22 11/03/2022 CBC WITH DIFF MCV 92.9 fL 81.0-9 9.0 Not Available [facility] (Lab) [address], [place], [address], 11/03/2022 07:36:16 11/03/20 22 11/03/2022 CBC WITH DIFF MCH 30.6 pg 27.0-3 1.0 Not Available [facility] (Lab) [address], [place], [address], 11/03/2022 07:36:16 11/03/20 22 11/03/2022 CBC WITH DIFF MCHC 32.9 g/dL 32.0-3 6.0 Not Available [facility] (Lab) [address], [place], [address], 11/03/2022 07:36:16 11/03/20 22 11/03/2022 CBC WITH DIFF RDW 13.2 % 11.5-1 4.5 Not Available [facility] (Lab) [address] [facility], [place], [address], 11/03/2022 07:36:16 11/03/20 22 11/03/2022 CBC WITH DIFF platelet count 198 x10'3 /uL 130-40 0 Not Available [facility] (Lab) [address] [facility], [place], [address], 11/03/2022 07:36:16 11/03/20 22 11/03/2022 CBC WITH DIFF MPV 10.9 fL 9.3-12 .2 Not Available [facility] (Lab) [address] [facility], [place], [address], 11/03/2022 07:36:16 11/03/20 22 11/03/2022 CBC WITH DIFF diff type AUTOMA BLAYNE DIFFER ENTIAL Not Available [facility] (Lab) [address] [facility], [place], [address], 11/03/2022 07:36:16 11/03/20 22 11/03/2022 CBC WITH DIFF neutrophils 78.5 % Not Available [facility] (Lab) [address] [facility], [place], [address], 11/03/2022 07:36:16 11/03/20 22 11/03/2022 CBC WITH DIFF lymphocytes 12.6 % Not Available [facility] (Lab) [address] [facility], [place], [address], 11/03/2022 07:36:16 11/03/20 22 11/03/2022 CBC WITH DIFF monocytes 6.8 % Not Available [facility] (Lab) [address], [place], [address], 11/03/2022 07:36:16 11/03/20 22 11/03/2022 CBC WITH DIFF eosinophils 1.1 % Not Available [facility] (Lab) [address], [place], [address], 11/03/2022 07:36:16 11/03/20 22 11/03/2022 CBC WITH DIFF basophils 0.3 % Not Available [facility] (Lab) [address] [facility], [place], [address], 11/03/2022 07:36:16 11/03/20 22 11/03/2022 CBC WITH DIFF immature granulocytes 0.7 % Not Available [facility] (Lab) [address] [facility], [place], [address], 11/03/2022 07:36:16 11/03/20 22 11/03/2022 CBC WITH DIFF abs. neutrophils 8.29 x10'3 /uL 1.80-7 .70 high Not Available [facility] (Lab) [address] [facility], [place], [address], 11/03/2022 07:36:16 11/03/20 22 11/03/2022 CBC WITH DIFF abs. lymphocytes 1.33 x10'3 /uL 1.00-4 .80 Not Available [facility] (Lab) [address] [facility], [place], [address], 11/03/2022 07:36:16 11/03/20 22 11/03/2022 CBC WITH DIFF abs. monocytes 0.72 x10'3 /uL 0.24-0 .86 Not Available [facility] (Lab) [address], [place], [address], 11/03/2022 07:36:16 11/03/20 22 11/03/2022 CBC WITH DIFF abs. eosinophils 0.12 x10'3 /uL 0.04-0 .36 Not Available [facility] (Lab) [place], [address], 11/03/2022 07:36:16 11/03/20 22 11/03/2022 CBC WITH DIFF abs. basophils 0.03 x10'3 /uL 0.01-0 .08 Not Available [facility] (Lab) [place], [address], 11/03/2022 07:36:16 11/03/20 22 11/03/2022 CBC WITH DIFF abs. immature grans 0.07 x10'3 /uL 0.00-0 .49 Not Available [facility] (Lab) [place], [address], 11/03/2022 07:36:16 11/03/20 22 11/03/2022 COMPR EHENS CONNIE METAB OLIC PANEL glucose 82 mg/dL 70-99 Not Available [facility] (Lab) [place], [address], 11/03/2022 08:00:51 11/03/20 22 11/03/2022 COMPR EHENS CONNIE METAB OLIC PANEL BUN 9 mg/dL 7-18 Not Available [facility] (Lab) [place], [address], 11/03/2022 08:00:51 11/03/20 22 11/03/2022 COMPR EHENS CONNIE METAB OLIC PANEL creatinine 0.98 mg/dL 0.55-1 .02 Not Available [facility]Lab[facility] [address] [facility] [place], [address], 11/03/2022 08:00:51 11/03/20 22 11/03/2022 COMPR EHENS CONNIE METAB OLIC PANEL sodium 140 mmol/ L 136-14 5 Not Available [facility] (Lab) [place], [address], 11/03/2022 08:00:51 11/03/20 22 11/03/2022 COMPR EHENS CONNIE METAB OLIC PANEL potassium 3.8 mmol/ L 3.5-5. 1 Not Available [facility] (Lab) [place], [address], 11/03/2022 08:00:51 11/03/20 22 11/03/2022 COMPR EHENS CONNIE METAB OLIC PANEL chloride 111 mmol/ L 100-10 8 high Not Available [facility] (Lab) [place], [address], 11/03/2022 08:00:51 11/03/20 22 11/03/2022 COMPR EHENS CONNIE METAB OLIC PANEL total CO2 26.5 mmol/ L 21-32 Not Available [facility] (Lab) [place], [address], 11/03/2022 08:00:51 11/03/20 22 11/03/2022 COMPR EHENS CONNIE METAB OLIC PANEL calcium 7.8 mg/dL 8.5-10 .1 low Not Available [facility] (Lab) [place], [address], 11/03/2022 08:00:51 11/03/20 22 11/03/2022 COMPR EHENS CONNIE METAB OLIC PANEL total bilirubin 0.2 mg/dL 0.2-1. 2 THIS ASSAY IS NOT RECOM CE D FOR PATIE NTS UNDER GOING TREAT MENT WITH ELTRO MBOPA G DUE TO THE POTEN TIAL FOR FALSE LY ELEVA BLAYNE RESUL TS. Not Available [facility] (Lab) [address] [facility], [place], [address], 11/03/2022 08:00:51 11/03/20 22 11/03/2022 COMPR EHENS CONNIE METAB OLIC PANEL total protein 5.8 g/dL 6.4-8. 2 low Not Available [facility] (Lab) [address] [facility], [place], [address], 11/03/2022 08:00:51 11/03/20 22 11/03/2022 COMPR EHENS CONNIE METAB OLIC PANEL albumin 2.2 g/dL 3.4-5. 0 low Not Available [facility] (Lab) [address] [facility], [place], [address], 11/03/2022 08:00:51 11/03/20 22 11/03/2022 COMPR EHENS CONNIE METAB OLIC PANEL AST 21 U/L 15-37 Not Available [facility] (Lab) [address] [facility], [place], [address], 11/03/2022 08:00:51 11/03/20 22 11/03/2022 COMPR EHENS CONNIE METAB OLIC PANEL ALT 28 U/L 14-55 Not Available [facility] (Lab) [address] [facility], [place], [address], 11/03/2022 08:00:51 11/03/20 22 11/03/2022 COMPR EHENS CONNIE METAB OLIC PANEL alk phosphatase 102 U/L 50-136 Not Available [facility] (Lab) [address], [place], [address], 11/03/2022 08:00:51 11/03/20 22 11/03/2022 COMPR EHENS CONNIE METAB OLIC PANEL anion gap 2.5 mmol/ L 5-15 low Not Available [facility] (Lab) [place], [address], 11/03/2022 08:00:51 11/03/20 22 11/03/2022 COMPR EHENS CONNIE METAB OLIC PANEL BUN creatinine ratio 9.2 6-26 Not Available [facility] (Lab) [place], [address], 11/03/2022 08:00:51 11/03/20 22 11/03/2022 COMPR EHENS CONNIE METAB OLIC PANEL A:g ratio 0.6 ratio 1.0-2. 0 low Not Available [facility] (Lab) [place], [address], 11/03/2022 08:00:51 11/03/20 22 11/03/2022 COMPR EHENS CONNIE METAB OLIC PANEL est GFR 79 mL/mi n/1.7 3_M2 >90 low NOTE: eGFR is not calcu lated for patie nts <18 years of age. This is an estim ated GFR calcu latio n using the new CKD EPI creat inine equat ion witho ut race and so does not requi re a corre ction facto r for race. This estim ated GFR shoul d not be used for calcu latin g drug doses . Not Available [facility] (Lab) [place], [address], 11/03/2022 08:00:51 09/28/20 22 09/28/2022 [facility] [place] [address] [place], [place] [address] EXAMIN ATION: OB Biophy sical Profil e w/o Stress Test ACCESS ION: [id number] EXAM DATE/T DAJUAN: 12:56 PM REASON FOR EXAM: decrea sed moveme nt Decrea sed moveme nt x1 day COMPAR JEFERSON: None TECHNI QUE: Transa bdomin al ultras ound evalua tion of the pelvic conten ts was perfor med for analys is of graysc pantera and B mode Dopple r imagin g charac terist ics. FINDIN GS: Single live intrau terine pregna ncy is identi fied in vertex positi on. Cardia c activi ty is measur ed at 157 bpm. Biophy sical profil e score: breath in Gross body moveme nt: 2 tone: 2 Qualit ative AFP: 2 Total Biophy sical Profil e Score: 8/8 ===== IMPRES VAMSHI: ===== 1. Single live intrau terine pregna ncy with heart rate of 157 bpm 2. Biophy sical profil e score 8/8 Referr ed By: Romana onical ly Signed By: Arnold gaona MD on 1:27 PM Interp reted By: Arnold gaona MD, 1:26 PM [email or web address] [address], [address], 09/30/2022 17:13:17 10/08/20 22 10/02/2022 US, obste tric, limit ed No observ ation record ed. kala [address], [place], [address], 10/09/2022 12:09:06 10/31/20 22 10/30/2022 US, obste tric, follo w-up No observ ation record ed. [email or web address] [address], [place], [address], 10/31/2022 15:20:54 Result Notes None recorded. Problems Name Problem SNOMED Code Status Onset Date Resolution Date Notes Provider Name and Address Organization Details Recorded Time Large fetus 699937876 Completed 10/02 growth at 94.6%, EFW 3303 grams, 7-5; CHRISTOS 19.51cm Etta Britsch null, [employer] [facility] 3 15:24:08 Primigravi da [id number] Completed GBS negativ e. Etta Britsch null, [employer] [facility] 3 15:24:08 Mixed anxiety and depressive disorder 982376775 Active 2022 Uriel Dunham [facility] [address] [place], [address], [facility] IV 3 16:04:49 depression 27570121 Active 2022 Uriel Dunham [facility] [address] [place], [address], [employer] [facility] 3 15:38:55 Problem Notes None recorded. Procedures Surgical History Date Name Laterality Status Provider Name and Address Organization Details Recorded Time 03/24/20 21 Date of Last Pap Smear completed Lidia Sancheslister [facility] 10/02/2022 17:29:40 tonsillectomy completed Lidia Salem [facility] 10/02/2022 17:30:19 Imaging Results Imaging Date Name Status LastModified by Organiz ation Details LastModified Time 09/28/2022 US bpp completed [email or web address] [address], [address], 09/30/2022 17:13:17 10/02/2022 US, obstetric, limited completed [email or web address] [address], [place], [address], 10/09/2022 12:09:06 10/30/2022 US, obstetric, follow-up completed [email or web address] [address], [place], [address], 10/31/2022 15:20:54 Procedure Notes None recorded. Medical Equipment None Reported. Allergies Allergen ID Allergen Name Allergen Category Reaction Reaction Severity Criticality Documentation Date Start Date Code Code System Note Provider Name and Address Organization Details Recorded Time 622841 Demerol medicatio n Not available Not available Not available 09/14/20212017 49869 1 RxNorm Sever ity: Moder ate; Not Available Not Available Not Available Medications Name Sig Start Date Stop Date Status Note LastModified by Organization Details LastModified Time nifedipin e ER 30 mg tablet,ex tended release 24 hr TAKE 1 TABLET BY MOUTH DAILY FOR 30 DAYS. 02/26 completed Not Available Not Available Not Available venlafaxi ne ER 37.5 mg capsule,e xtended release 24 hr TAKE 1 CAPSULE BY MOUTH EVERY DAY active Not Available Not Available No t Available hydrochlo rothiazid e 25 mg tablet TAKE 1 TABLET BY MOUTH EVERY DAY IN THE MORNING 02/26 completed Not Available Not Available Not Available hydroxyzi ne HCl 10 mg tablet active Not Available Not Available No t Available amoxicill in 875 mg-potass ium clavulana te 125 mg tablet TAKE 1 TABLET BY MOUTH EVERY 12 HOURS 10/02 completed Not Available Not Available Not Available bupropion HCl XL 300 mg 24 hr tablet, extended release TAKE 1 TABLET BY MOUTH EVERY DAY 04/09 completed Not Available Not Available Not Available 02/26 completed Not Available Not Available Not Available 1 mg-20 mcg (24)/75 mg (4) tablet Take 1 tablet(s ) by mouth daily as directed . 01/04 completed Tablet RxNorm: 2629831 Allow Substitu tion: True Refill Denied: No Not Available Not Available Not Available Taytulla 1 mg-20 mcg (24)/75 mg (4) capsule Take 1 capsule( s) by mouth daily as directed . 11/16 completed Taytulla 20mcg/1m g Capsules RxNorm: [id number] Allow Substitu tion: True Refill Denied: No Not Available Not Available Not Available Vitals Date Recorded Body height Body mass index (BMI) Body temperature Systolic blood pressure Diastolic blood pressure Provider Name and Address Organization Details Last Updated DateTime 2 177.8 cm 43.2 kg/m2 98.1 [degF] 138 mm[Hg] 86 mm[Hg] Lidia Engle [place] [facility] 2 14:49:40 Date Recorded Body weight Provider Name an d Address Organization Details Last Updated DateTime 10/24/2022 592196.805947 g JULIANN REECE , [address] [place], [address], [place] [facility] 10/24/2022 22:18:23 Date Recorded Body height Provider Name an d Address Organization Details Last Updated DateTime 10/30/2022 177.8 cm Marina Reyes [place] [facility] 10/30/2022 16:57:45 Date Recorded Body mass index (BMI) Body temperature Systolic blood pressure Diastolic blood pressure Provider Name and Address Organization Details Last Updated DateTime 10/30/2022 44.1 kg/m2 98.3 [degF] 142 mm[Hg] 86 mm[Hg] Lidia Engle [place] [facility] 2 17:17:17 Date Recorded Body weight Provider Name an d Address Organization Details Last Updated DateTime 10/30/2022 044547.018782 g Maliha Layne, [facility] [address] [place], [address], [place] [facility] 10/30/2022 18:11:02 Date Recorded Body height Body mass index (BMI) Body weight Systolic blood pressure Diastolic blood pressure Provider Name and Address Organization Details Last Updated DateTime 11/21/2022 177.8 cm 38.3 kg/m2 418900.8 94013 g 120 mm[Hg] 82 mm[Hg] Mireya Dent [place] [facility] 2 14:23:22 Date Recorded Body height Body mass index (BMI) Body weight Body temperature Systolic blood pressure Diastolic blood pressure Provider Name and Address Organization Details Last Updated DateTime 3 177.8 cm 39.4 kg/m2 464848. 21 g 97.4 [degF] 138 mm[Hg] 88 mm[Hg] Korey Olvera [place] [facility] 3 15:24:27 Date Recorded Body height Body mass index (BMI) Body weight Body temperature Systolic blood pressure Diastolic blood pressure Provider Name and Address Organization Details Last Updated DateTime 3 177.8 cm 39.1 kg/m2 916222. 478341 g 97.4 [degF] 120 mm[Hg] 80 mm[Hg] Etta Ro [facility] 3 15:21:21 Social History Question Answer Notes LastModified by [employer] Details LastModified Time Tobacco Smoking Status Never Smoker Lidia Engle null, [facility] 10/02/2022 17:30:12 What Is Your Level Of Alcohol Consumption? None Information not available 10/02/2022 Are You Blind Or Do You Have Difficulty Seeing? No Information not available 10/02/2022 Are You Deaf Or Do You Have Serious Difficulty Hearing? No Information not available 10/02/2022 What Type Of Diet Are You Following? REGULAR Information not available 10/02/2022 How Many Children Do You Have? 1 kbritsch Information not available 02/26/2023 What Is Your Relationship Status? Information not available 10/02/2022 Are You Sexually Active? Yes Information not available 10/02/2022 Do You Use Any Illicit Or Recreational Drugs? No Information not available 10/02/2022 Do You Or Have You Ever Used Any Other Forms Of Tobacco Or Nicotine? No Information not available 10/02/2022 Sex: Unknown Functional Status Question Answer Note LastModified by [employer] Details LastModified Time What is your exercise level? Occasional Information not available 10/02/2022 Mental Status None recorded. Family History Relationship Description Onset Age of this Age Resolved Age Notes LastModified by Organization Details LastModified Time Maternal Aunt Malignant tumor of breast Not available 07/2022 17:49:53 Paternal Grandfather Malignant tumor of pancreas Not available 07/2022 17:50:15 Father Malignant tumor of prostate Not available 07/2022 17:50:30 Medical History Condition Response Other Cancer N High Blood Pressure N Colon Cancer N Cytomegalovirus N Hyperthyroidism N Breast Cancer N MRSA N Herpes (HSV) N Blood Transfusion N Lung Cancer N Depression Y Hypothyroidism N Incontinence N Panic Attacks N Neurological Disorder N Deep Vein Thrombosis N Anxiety Disorder N Autoimmune disease N Arthritis N Tuberculosis/Positive PPD N Shingles N Polycystic Ovarian Syndrome Y Cervical Cancer N Hematuria N Chlamydia N Stroke N Seasonal allergies N Crohn's Disease N Alzheimer's/Dementia N COPD/Emphysema N Endometriosis N HPV/Genital Warts N IBS (Irritable Bowel Syndrome) N History of Abnormal Pap N High Cholesterol N Liver Disease N Kidney Infection N Fibromyalgia N Ulcer N Kidney Disease N HIV N Gallbladder disease N Sickle Cell Disease/Trait N Von Willebrand disease N ADD/ADHD N Eating Disorder N Anemia N Diabetes Mellitus (non-insulin dependent ) N Multiple Sclerosis N Ovarian Problems N Gonorrhea N Frequent Urinary Tract infections N Osteopenia N Headaches/migraines N GERD (reflux) N Ovarian Cancer N Diabetes (insulin dependent) N Seizures/Epilepsy N Fibroids N Asthma N Heart Attack N Lupus N Endometrial Cancer N Rubella N Blood Clotting Disorder N Bipolar Disorder N Diabetes Mellitus (during ) N Ulcerative Colitis N Hepatitis N Heart Disease N Pulmonary Embolism N RPR N Chicken Pox N Osteoporosis N Gynecological History Statement/Question Response Date of Last Colonoscopy Frequency of Cycle (Q days) Date of LMP 03/09/2022 Most Recent Bone Density HPV Vaccine N Date of Last Pap Smear 03/24/2021 Duration of Flow (days) 3 Most Recent Mammogram Current Control Method None Age at Menarche 12 Obstetrics History GPAL:G 1 P 1 0 0 1 Type Value Full Term 1 Living 1 Total 1 Past Encounters Encounter ID Performer Location Encounter Start Date Encounter Closed Date Diagnosis/Indication Diagnosis SNOMED-CT Code Diagnosis ICD10 Code Diagnosis Note [id number] Maliha Layne CNM [facility] [address] [place] [address] 10/02/2022 16:32:28 10/15/2022 14:55:48 Transfer status 317345662 Z76.89 Dating given by patient at 35 4/7 with EDC of 11/02. Ultrasound today at 94.6%, EFW 3303 grams, 7-5; CHRISTOS 19.51cm. [id number] Maliha Layne CNM [facility] [address] [place] [address] 10/09/2022 16:59:54 10/10/2022 10:20:27 Routine care 031842854 Z34.93 [id number] [facility]ia Layne, [facility] [address] [place] [address] 10/21/2022 16:58:17 10/22/2022 13:37:14 [id number] [facility] [address] [place] [address] 10/24/2022 14:28:46 10/25/2022 13:54:43 Routine care 973232591 Z34.93 IUP @ 38+ wks. No OB complaints . Labor precaution s reviewed. RTO 1 wk. Gestation period, 38 weeks 52451041 Z3A.38 Large for gestation age fetus 951586871 O36.63X0 US @ 35 weeks: >90%US PA sent in for 39th weekDiscus sed r/b/a of vs PLTCS for LGA [id number] [facility] [address] [place] [address] 10/30/2022 16:56:01 10/31/2022 10:25:57 Large for gestation age fetus 983049838 O36.63X0 growth [id number] [facility] [address] [place] [address] 11/21/2022 14:14:03 12/10/2022 12:13:43 state, 2 weeks 64326867 Z39.2 Maternal p ostpartum depression screening 4958846372 95552 Z13.32 Contracept ion care education 316857124 Z30.09 Contracept connie counseling : Discussed options including OCPs, NuvaRing, Nexplanon, hormonal and copper IUDs. Discussed risks, efficacy, noncontrac eptive benefits, and side effects of each option, including risk of VTE with hormonal contracept ion and uterine perforatio n, expulsion, infection with IUD. Will discuss in detail at 6 week . Pt will go to [email or web address] to look at further options. She is tiago alonzo and IUD. [id number] CORONA DUNCAN, [facility] [address] [place] [address] 02/18/2023 15:09:35 02/19/2023 09:05:06 Maternal depression screening 0354747507 86652 Z13.32 Contracept ion care education 829920752 Z30.09 Contracept connie counseling : Discussed options including OCPs, NuvaRing, Nexplanon, hormonal and copper IUDs. Discussed risks, efficacy, noncontrac eptive benefits, and side effects of each option, including risk of VTE with hormonal contracept ion and uterine perforatio n, expulsion, infection with IUD. Discussed risks of CHCs in PP and with breastfeed ing. Anxiety 42907839 F41.9 [id number] Uriel Dunham [facility] [address] [place] [address] 02/26/2023 14:55:33 02/27/2023 11:16:00 Mixed anxiety and depressive disorder 381472608 F41.8 *Discussed medication management vs therapy vs combinatio n treatment for anxiety/de pression. Reviewed risks and benefits of untreated mood and anxiety disorders vs medication in and .*Explaine d that the SSRIs are first-line antidepres sants/anti anxiety agents; SSRIs are one of the best studied class of medication s during breastfeed ing. All medication s taken by the mom are excreted in breast milk; there is no evidence to suggest that certain antidepres sants pose significan t risk to the . In general, antidepres sants are considered to be relatively safe for use during breastfeed ing, and data on fluoxetine , paroxetine , sertraline , and TCAs are encouragin g and suggest that the amounts of drug to which the infant is exposed is low and that significan t complicati ons related antidepres cassia exposure in breast mild appear to be rare.*serena res referral to talk therapy.*E xplained R/B/ARs of SSRIs, time frame to effectiven ess, and Black Box Warning . It is recommende d to continue medication for 9-12 months. Reviewed benefits to talk therapy. Info to .net given.* denies SI/thought s of self-harm, but knows to seek help if that changes.* wants to research medication , then get back with me if she decides for pharmacolo gic therapy. Referral to therapy initiated. Health Concerns Section Related Observation LastModified by Organization Detai ls LastModified Time None Recorded Concern Status LastModified by Organization Details LastModified Time None Recorded Advance Directives Directive None Recorded Payers Encounter Date Sequence Insurance Name Policy Number Policy Deal Covered Member ID Deal Member ID Guarantor Name 10/24/2022 1 [facility] [id number] Sissy Matthews [id number] Sissy Matthews 10/30/2022 1 [facility] [id number] Sissy S Matthews [id number] Sissy S Matthews 11/21/2022 1 [facility] [id number] Sissy S Matthews [id number] Sissy Matthews 02/18/2023 1 [facility] [id number] Sissy Yarelis Matthews [id number] Sissy Yarelis Matthews 02/26/2023 1 [facility] [id number] Sissy Yarelis Matthews [id number] Sissy Matthews Notes Date Note Type Note Provider Name and Address Organization Details Recorded Time 10/24/2022 text/html Sissy is here t melanie for a routine OB visit. She is currently at 38.5 weeks gestation. She has no complaints or questions. She is taking vitamins. She has not felt movement. She denies the presence of vaginal bleed, leaking fluid, abdominal cramps, nausea, vomiting. There are no identifiable risk factors for pre-term labor. JULIANN REECE DO [address] [place] [address], [phone], [facility] [employer] 10/24/2022 22:20:45 10/30/2022 text/html OB ProblemReport ed bypatient.Associated Symptoms:no abdominal pain; no cramping; no contractions; normal movement; no bleeding; no ROM; no vaginal discharge; no vaginal/vulvar itching or irritation; no edema; no visual changes; no headache; no dizziness; no breathlessness Maliha Layne CNM [address] [place] [address], [phone], [facility] [employer] [facility] 10/30/2022 18:13:12 11/21/2022 text/html Boris is here t melanie for her post 2 week check up. She delivered 11/12/2022 vaginal. [facility] [address] [place], [address], [facility] [employer] [facility] 11/25/2022 18:42:04 02/18/2023 text/html Annual GYNReport ed bypatient.Menstrual cycle:Normal menses Urinary symptoms:No hematuria; No incontinence Vulva:No genital lesion Vagina:Normal vaginal discharge Breast:No breast pain; No breast lump; No nipple discharge Sexual complaints:No sexual complaints; No pain during intercourse; Normal libido Menopausal Symptoms:No menopausal symptoms; Normal vaginal lubrication Psychological symptoms:No depression; No anxiety; No PMDD pt think her medication is not working or helping anymore and also needs FMLA filled out. [facility] [address] [place], [address], [facility] [employer] IV 02/20/2023 14:16:10 02/26/2023 text/html Anxiety/Depressi onRep orted bypatient.Quality:moo d worse;increased anxiety Severity:denies suicidal ideations; able to maintain relationships;interfe rence with household activities;interferen ce with sleep;interference with work Context:major life stressors Associated Symptoms:denies homicidal ideations; no significant weight gain; no significant weight loss; no visual/auditory hallucinations; no delusions; no shortness of breath;anxiety;depres vamshi;insomnia;anhedon ia;feeling guilty;social withdrawal;decreased effectiveness/product ivity;decreased energy Sissy is here today to discuss her depressionshe delivered on 11/02/2022tarted noticing symptoms 2 months into her .She was on wellbutrin last yearReports she has a hard time doing normal stuff like beforeShe is worried about everything having to be clean and wonders if baby is ok at all timesIntrusive thoughts- - getting into a car accident, for example Uriel Dunham, [facility] [address] [place], [address], [facility] 03/02/2023 10:33:05 OBGyn Episode Ob Episode Information Episode Created Date Number of Fetuses Patient Bloodtype Patient rh Status Prepregnancy Weight lbs Domestic Partner Domestic Partner Phone Father Name Pound Keeper Status 10/09/20 22 1 CLOSED Fetus Data First Name Last Name Admitted to NICU Weight (g) Sex Living Outcome Pediatric Complications Fetus ID Race Codes Race Delivery Type false 3535.20 [id number] F true Full Term [id number] Problems Problem Notes late transfer of care. No re cords received. Problem Name Start Date End Date Resolution Snomed Code Not e Large fetus [id number] 10/02 lorena wth at 94.6%, EFW 3303 grams, 7-5; CHRISTOS 19.51cm Primigravida [id number] GBS neg ative. Jerome Calculation Initial Jerome Date Initial Exam Date Initial Exam Provider Initial Ultrasound Date Last Menstrual Period Date Ultra Sound Weeks Gestation 10/09/2022 0 Eighteen To Twenty Week Jerome Update Ultra Sound Date Fundal Height At Umbil Quickening Date Ultra Sound Latest Weeks Gestation Final Jerome Confirmed By Final Jerome Confirmed Date Final Jerome Date Ultra Sound Latest Days Gestation 0 11/02/20 22 0 Pre-rowena Flowsheet Flowsheet Date 10/09/2022 Montalvo Score Blood Edema Fundus Height Fundus Units Glucose Ketones Leukocytes Nitrite Labor Signs Protein Cervic Dilation Cervic Effacement Cervic Station 41 cm Type Weight in lbs Pre/Post Dialysis Refused With clothes 294.161006903326 BP Diastolic BP Location Tested BP Systolic BP Type 82 L arm 122 sitting Fetus Heart Rate Present A 136 Fetus Movement A Yes Comments GBS collected. Strict precau tions reviewed- patient states she will call her previous provider for recors. Flowsheet Date 10/02/2022 Montalvo Score Blood Edema Fundus Height Fundus Units Glucose Ketones Leukocytes Nitrite Labor Signs Protein Cervic Dilation Cervic Effacement Cervic Station Type Weight in lbs Pre/Post Dialysis Refused BP Diastolic BP Location Tested BP Systolic BP Type Fetus Heart Rate Present A 151 Fetus Movement A Yes Comments Transfer of care. Growth tod ay at 94.6%. Flowsheet Date 10/21/2022 Montalvo Score Blood Edema Fundus Height Fundus Units Glucose Ketones Leukocytes Nitrite Labor Signs Protein Cervic Dilation Cervic Effacement Cervic Station 42 cm none neg Type Weight in lbs Pre/Post Dialysis Refused Weight 298.636531973302 BP Diastolic BP Location Tested BP Systolic BP Type 88 142 Fetus Heart Rate Present A 145 Fetus Movement A Yes Comments Records received. Has appoin tment on 10/24 for growth ultrasound. Discussed risks of LGA baby including shoulder dystocia and maternal/ risks in depth. Declines further decision until after ultrasound. Flowsheet Date 10/24/2022 Montalvo Score Blood Edema Fundus Height Fundus Units Glucose Ketones Leukocytes Nitrite Labor Signs Protein Cervic Dilation Cervic Effacement Cervic Station none Type Weight in lbs Pre/Post Dialysis Refused Weight 301.171837798237 BP Diastolic BP Location Tested BP Systolic BP Type 86 138 Fetus Heart Rate Present A 138 Fetus Movement A Yes Comments Unable to do growth today be cause no US PA sent in prior to visit and patient's insurance does not cover day of US. Will do growth US at 10/30 weeks. Discussed no IOL for LGA, better to go into labor on her own. Also discussed vs PLTCS for LGA, pt receptive to information. Will make decision after growth US on 10/30. RTO in 1 week Flowsheet Date 10/30/2022 Montalvo Score Blood Edema Fundus Height Fundus Units Glucose Ketones Leukocytes Nitrite Labor Signs Protein Cervic Dilation Cervic Effacement Cervic Station 1+ Type Weight in lbs Pre/Post Dialysis Refused Weight 307.844198561797 BP Diastolic BP Location Tested BP Systolic BP Type 86 142 Fetus Heart Rate Present A 140 Fetus Movement A Yes Comments Growth today at 87.7%, EFW 4 088 grams, 9-0; CHRISTOS 14.20cm. BP elevated today 7 pound weight gain in [address] Novak in to see patient. Reviewed ultrasound, history, and preeclampsia risks with patient and . Recommended IOL. Will goto [facility]. Flowsheet Date 11/21/2022 Montalvo Score Blood Edema Fundus Height Fundus Units Glucose Ketones Leukocytes Nitrite Labor Signs Protein Cervic Dilation Cervic Effacement Cervic Station Type Weight in lbs Pre/Post Dialysis Refused Weight 267.771983102644 BP Diastolic BP Location Tested BP Systolic BP Type 82 120 Fetus Heart Rate Present Fetus Movement Comments Flowsheet Date 02/18/2023 Montalvo Score Blood Edema Fundus Height Fundus Units Glucose Ketones Leukocytes Nitrite Labor Signs Protein Cervic Dilation Cervic Effacement Cervic Station Type Weight in lbs Pre/Post Dialysis Refused With clothes 274.579272802585 BP Diastolic BP Location Tested BP Systolic BP Type 88 R arm 138 sitting Fetus Heart Rate Present Fetus Movement Comments Flowsheet Date 02/26/2023 Montalvo Score Blood Edema Fundus Height Fundus Units Glucose Ketones Leukocytes Nitrite Labor Signs Protein Cervic Dilation Cervic Effacement Cervic Station Type Weight in lbs Pre/Post Dialysis Refused With clothes 272.143065259831 BP Diastolic BP Location Tested BP Systolic BP Type 80 L arm 120 sitting Fetus Heart Rate Present Fetus Movement Comments Menstrual History Last Menstrual Date Menses Monthly On Bcp Conception Prior Menses Frequency Hcg Plus Date Menarche Onset Age Delivery Information Delivery Date Delivery Type Labor Anesthesia Weeks Gestation Incision Type Labor Labor Length Hrs Delivered By Post Complications Tubal Sterilization Discharge Date Comments 2 [place] Regional-Ep idural 40 Danielle Correia CNJayleen None Discharge Information Feeding Method Contraceptive Method Maternal HG B and HCT Levels Breast
--- OUTSIDE RECORDS SUMMARY | 2025-03-12 10:25 | XMS_ITS | Clinical Summary ---
Author Organization [facility] Address [address] [place] [address] Care Team Providers Care Stitch Cleaner Name Role Phone Unavailable Primary Care Provider Unavailabl e Allergies Active Allergy Reactions Criticality Noted Date Comments Meperidine Hives Low 03/10/2019 Other reaction(s): Hives Other reaction(s): Hives Other reaction(s): Hives Other reaction(s): Hives Other reaction(s): Hives Other reaction(s): Hives Other reaction(s): Hives Other reaction(s): Hives Other reaction(s): Hives Other reaction(s): Hives Other reaction(s): Hives Other reaction(s): Hives Medications [id number] C ACID ORAL Take by mouth. Active [...] (BMI) of 40.0 to 44.9 in adult ([facility]) 12/24/2021 Overview (08/22/2022): --Growth US [...] exists Dental X-Ray: Full Mouth 08/06/2025 08/05/2022 Meningococcal B Vaccine Aged Out No l [...]
--- OUTSIDE RECORDS SUMMARY | 2025-03-12 10:25 | XMS_ITS | Clinical Summary ---
Author Organization [facility] Address [facility] [place] [address] Care Team Providers Care Sleeve Wheel Maker Name Role Phone Susie Montilla NP Primary Care Provider [phone] Allergies Active Allergy Reactions Criticality Noted Date [...] Problems Problem Noted Date Diagnosed Date anxiety ([facility]/HCC) 03/12/2023 depression 03/12/2023 Obesity (BMI 35.0-39.9 without comorbidity) 02/22 Vaginal delivery ([facility]) 11/02/2022 Normal course ([facility]) 11/02/2022 Preeclampsia ([facility]) 11/02/2022 -induced hypertension in third trimeste r ([facility]) 10/30/2022 Resolved Problems Problem Noted Date Diagnosed Date Resolved Date ([facility]) 10/30/2022 11/02/20 22 39 weeks gestation of ([facility]) 10/30/2022 11/02/2022 Excessive growth affec ting management of mother in third trimester, antepartum ([facility]) 10/30/2022 11/02/2022 Immunizations Immunization Administration Dates Next Due Tdap (Generic) 08/14/2022,05/08/2021 [...] often do you attend chur ch or methodist services? 1 to 4 times per year 10/30/2022 Do you belong to any clubs o r organizations such as religious groups, unions, fraternal or athletic groups, or [...] Recorded Patient Health Questionnaire-2 Score 1 03/12/2023 [facility] - Occupational [...] place to sleep or slept in a mcfp (including now)? No 10/30/2022 Depression Answer Date [...] Comments Blood Pressure 122/88 01/21/2024 4:00 PM UTILITIES ESTIMATOR AND DRAFTER Pulse 90 01/21/2024 3:45 PM UTILITIES ESTIMATOR AND DRAFTER Temperature 37 C (98.6 F) 01/21/2024 3:45 PM UTILITIES ESTIMATOR AND DRAFTER Respiratory Rate 18 01/21/2024 3:45 PM UTILITIES ESTIMATOR AND DRAFTER Oxygen Saturation 97% 01/21/2024 3:45 PM UTILITIES ESTIMATOR AND DRAFTER Inhaled Oxygen Concentration - - Weight 117.8 kg (259 lb 12.8 oz) 01/21/2024 3:45 PM UTILITIES ESTIMATOR AND DRAFTER Height 177.8 cm (5' 10 ) 01/21/2024 3:45 PM UTILITIES ESTIMATOR AND DRAFTER Body Mass Index 37.28 01/21/2024 3:45 PM UTILITIES ESTIMATOR AND DRAFTER Plan of Treatment Health Maintenance Due Date [...] 2020 Annual Physical 03/12/2024 03/12/2023 COVID-19 Vaccine (2 - 2023-2 5 season) 2024 07/25/2021 PHQ-2 (Physician [place]) 11/24/2024 03/12/2023 DTaP, Tdap and Td Vaccines [...] 5 Years) and At-Risk Patients (6 to 49 Years) Aged Out No longer eligible b ased on patient's age to complete this topic RSV Immunizations Under 20 Months Aged Out No longer eligible b ased on patient's age to complete this topic Procedures Procedure Name Priority Date/Time Associated Diagnosis Comments HEPATITIS C ANTIBODY Routine 10/30/2022 10:32 PM UTILITIES ESTIMATOR AND DRAFTER from Last 3 Months or Most Recently Relevant to Health Maintenance Results * HEPATITIS C ANTIBODY W/REFLEX (10/30/2022 10:32 PM UTILITIES ESTIMATOR AND DRAFTER) HEPATITIS C AB NON-REACTI VE NON-REACTI VE 10/31/2022 4:11 AM UTILITIES ESTIMATOR AND DRAFTER [facility] 10/30/2022 10:3 2 PM UTILITIES ESTIMATOR AND DRAFTER Jenise Kaiser MD LABORATORY Final Res ult [facility] [address] [place] [address], from Last 3 Months or Most Recently Relevant to Health Maintenance Insurance [facility] Advance Directives * Full Code (Latest Code Status on File) Date Activated Date Inactivated Comments 10/31/2022 9:56 AM 11/02/2022 3:13 AM * Full Code Date Activated Date Inactivated Comments 10/30/2022 10:08 PM 10/31/2022 9:56 AM Care Teams Sleeve Wheel Maker Relationship Specialty Start Date End Date Susie Montilla NP [address] [place] [address] PCP - General NURSE PRACTITIONER 03/10/23
--- OUTSIDE RECORDS SUMMARY | 2025-03-12 10:25 | XMS_ITS | Encounter Summary ---
Author Organization [facility] Address [address] [place] [address] Care Team Providers Care Warp Hanger Name Role Phone Unavailable Primary Care Provider Unavailabl e Prior Encounters Date Type Department Care Team Description 08/22/2022 Travel 08/22/2022 2:00 PM CDT Office Visit [facility] [address] [place] [address] Roma Casey, [facility] 08/20/2022 Travel 08/20/2022 3:00 PM CDT Office Visit [facility] [address], [address] [place] [address] Roma Casey, [facility] 08/05/2022 Travel 08/05/2022 1:00 PM CDT Office Visit [facility] [address], [address] [place] [address] Maya Lake, [facility] 07/10/2022 Travel 07/10/2022 12:00 PM CDT Office Visit [facility] [address] [place] [address] Brie Rivera, DMD 12/13/[address]verted [address] [facility] [address] [place] [phone] <No scans attached> 12/13/2019 Converted CPS Chart Documents [facility] [address], [address] [place] [phone] <No scans attached> 12/13/2019 Converted CPS Chart Documents [facility] [address], [address] [place] [phone] <No scans attached> 12/13/2019 Converted 13x Documents [facility] [address], [address] [place] [phone] <No scans attached> Last Filed Vital Signs [...] MISSED APPOINTMENT Routine 11/26/2016 1: 00 AM [facility] MEDICAL BILL PROCESSOR CONSULTATION Routine 2015 1:00 AM MDT ADJUNCTIVE [...]
--- OUTSIDE RECORDS SUMMARY | 2025-03-12 10:25 | XMS_ITS | Encounter Summary ---
Author Organization [facility] Address [facility] [place] [address] Care Team Providers Care Beauty Director Name Role Phone Bre Sanchez SENIOR PL SQL DEVELOPER Primary Care Provider [phone] SQL DEVELOPER Primary Care Provider [phone] Encounter Details Date Type Department Care Team (Late st Contact Info) Description 11/14/2022 [employer] Message [facility] [employer] [address] [place] [address] [place], [facility] Provider Proof of Name Change Needed Social [...] often do you attend chur ch or pentecostal services? 1 to 4 times per year 10/30/2022 Do you belong to any clubs o r organizations such as restorationism groups, unions, fraternal or athletic groups, or [...] Answer Date Recorded PHQ-2 Score 0 03/15/2019 [facility] - Occupational Stress Questionnaire Answer Date [...] place to sleep or slept in a alf (including now)? No 10/30/2022 Depression Answer Date [...] Coronavirus/COVID-19? No / Unsure 10/30/2022 8:20 PM SCIENTIST ENGINEER documented as of this encounter Functional Status * RETIRED Are you deaf or do you have serious difficulty hearing Answer Date of Assessment Author Status No 10/30/2022 8:32 PM SCIENTIST ENGINEER Activ e * RETIRED Are you blind or do you have serious difficulty seeing, even when wearing glasses? Answer Date of Assessment Author Status No 10/30/2022 8:32 PM SCIENTIST ENGINEER Activ e * Do you have serious difficulty walking or climbing stairs? Answer Date of Assessment Author Status No 10/30/2022 8:32 PM SCIENTIST ENGINEER Eneida Ulrich RN Active * Do you have difficulty dressing or bathing? Answer Date of Assessment Author Status No 10/30/2022 8:32 PM SCIENTIST ENGINEER Eneida Ulrich RN Active * Because of a physical, mental, or emotional condition, do you have difficulty doing errands alone such as visiting a doctor's office or shopping? Answer Date of Assessment Author Status No 10/30/2022 8:32 PM SCIENTIST ENGINEER Eneida Ulrich RN Active documented as of this encounter Mental Status * Because of a physical, mental, or emotional condition, do you have serious difficulty concentrating, remembering, or making decisions? Answer Entry Date Author Status No 10/30/2022 8:32 PM SCIENTIST ENGINEER Eneida Ulrich RN Active documented in this encounter Plan of Treatment Not on file documented as of this encounter Visit Diagnoses Not on filedocumented in this encounter Additional Health Concerns Infection Onset Date Last Indicated Resolved Time COVID-19 Rule Out 11/27/2023 11/27/2023 11/27/2023 2:24 PM SCIENTIST ENGINEER COVID-19 Rule Out 01/21/2024 01/21/2024 01/21/2024 4:27 PM SCIENTIST ENGINEER Assessment Noted Time PHQ-9 Depression Total Score: 4 03/10/20 19 12:27 PM CDT documented as of this encounter Care Teams Beauty Director Relationship Specialty Start Date End Date Bre Sanchez NP [address] [place] [address] PCP - General Nurse Practitioner Family 03/09/1902/22 Susie Montilla NP [address] [place] [address] PCP - General NURSE PRACTITIONER 03/10/23 documented as of this encounter
[2025-03-12 10:41] VITALS: BP 143/84; PULSE 95; RESP 18; TEMP 36.8; O2SAT 99
[2025-03-12 11:08] LABS: EDINFLUASCREEN Negative (Negative); EDINFLUBSCREEN Negative (Negative); EDSTREPNEGPOS1 Negative (Negative)
[2025-03-12 11:09] LABS: EDCOVIDSCREEN Negative (Negative)
--- NOTE | 2025-03-12 11:36 | ED_ITS ---
HPI - URI/Sore Throat General Chief Complaint: Upper Respiratory Infection Stated Complaint: Cough Source: patient Mode of arrival: ambulatory Limitations: no limitations History of Present Illness HPI Narrative: 34-year-old female presents to [facility] with complaints of 1 week history of nonproductive cough. Patient reports that she started with sore throat, nasal congestion and decreased taste past few days. Patient reports that upon today, she felt that she had increased difficulty taking a deep breath. Patient has shortness of breath, wheezing, fever, body aches or chills. Patient is nonsmoker. Patient denies sick contacts. Patient denies recent travel. Patient has been taking [id number] decongestant, Tylenol and Motrin with little relief. MD elicited complaint: cough, sore throat and nasal congestion Onset (ago): week(s) (1) Able to tolerate fluids by mouth: Yes Exacerbating factors: swallowing Treatments prior to arrival: acetaminophen, ibuprofen and cold medicine Related Data Home Medications ?Medication ?Instructions ?Recorded ?Confirmed ?Last Taken ?Type bupropion HCl 150 mg 24 hr tablet, mg PO 03/12/25 Unknown History extended release hydroxyzine HCl 25 mg tablet mg 03/12/25 Unknown History Allergies Allergy/AdvReac Type Severity Reaction Status Date / Time oxycodone Allergy Intermediate Swelling Verified 03/12/25 10:33 Review of Systems Constitutional: Constitutional: Denies chills, Denies fatigue, Denies fever(s) and Denies weakness ENT: Denies dysphagia, Denies vertigo, Denies dizziness, Denies epistaxis, Reports nasal congestion and Reports sore throat Respiratory: Respiratory: Reports cough, Denies dyspnea and Denies wheezing Gastrointestinal: Gastrointestinal: Denies diarrhea, Denies nausea and Denies vomiting Musculoskeletal: Musculoskeletal: Denies arthralgias and Denies joint swelling Integumentary/Breasts: Skin/Breast: Denies pruritus, Denies erythema and Denies rash Neurologic: Denies vertigo, Denies dizziness, Denies syncope and Denies hea dache(s) Exam Const: General: healthy appearing, no acute distress and alert Nutritional Appearance: well nourished Orientation/consciousness: patient oriented x3 Limitations: no limitations HENMT: Head: normal to inspection Ears: external ears normal and TM's normal bilaterally Face/Nose/Sinus: Normal external nose present Mouth: Yes Normal oral and palatal mucosa present and Yes moist mucous membranes Throat: posterior oropharynx normal and uvula midline Other: Moderate nasal congestion noted, left worse than right Eyes: Conjunctivae: conjunctivae normal Neck: Neck: normal visual inspection Resp: Effort & Inspection: normal respiratory effort and not labored Auscultation: clear to auscultation bilaterally, no crackles, no rales, no rhonchi and no wheezes Cardio: Rate: regular rate Rhythm: regular rhythm Heart sounds: no murmurs Skin: General skin exam: normal color Rashes: no rashes Wounds: no wounds Neuro: General: patient oriented x3 and moves all extremities Gait exam (Neuro): Normal gait present Extrem: General: normal to inspection Psych: Mental Status: mental status grossly normal Affect: normal affect Attitude: cooperative Course Course Level of Care: Express Care Visit Vital Signs Vital signs: Vital Signs Temperature 36.8 C 03/12/25 10:41 Pulse Rate 95 03/12/25 10:41 Respiratory Rate 18 03/12/25 10:41 Blood Pressure 143/84 H 03/12/25 10:41 Pulse Oximetry 99 03/12/25 10:41 Oxygen Delivery Room Air 03/12/25 10:41 Temperature 36.8 C 03/12/25 10:41 Pulse Rate 95 03/12/25 10:41 Respiratory Rate 18 03/12/25 10:41 Blood Pressure 143/84 H 03/12/25 10:41 Pulse Oximetry 99 03/12/25 10:41 Oxygen Delivery Room Air 03/12/25 10:41 MDM - URI/Sore Throat MDM Narrative Medical decision making narrative: Instructed patient to take medication as prescribed. Patient declined chest x- ray at this time. Patient agrees to follow-up with primary care provider if symptoms improve Differential Diagnosis Differential diagnosis: Likely otitis media, sinusitis and viral infection Lab Data Labs: Lab Results 03/12/25 03/12/25 Range/Units 11:07 11:08 POC Influenza A Ag Negative (Negative) POC Influenza B Ag Negative (Negative) POC SARS CoV-2 Ag Negative (Negative) POC Grp A Strep Screen Negative (Negative) Critical Care Time Critical Care Time Critical Care Time: No Discharge Plan Discharge Clinical Impression: Upper respiratory infection Qualifiers: URI type: unspecified URI Qualified Code(s): J06.9 - Acute upper respiratory infection, unspecified Patient Disposition: Home Condition: Stable Instructions: Upper Respiratory Infection (ED) Additional Instructions: Take Z-Misha and prednisone as prescribed Take Tessalon as needed for cough Increase fluids Follow-up with primary care prior symptomsif not improved proceed to the emergency room if symptoms worsen Patient Language: Mongolian Prescriptions: New azithromycin [Zithromax Z-Misha] 250 mg tablet See Rx Instructions .ROUTE .COMPLEX Qty: 6 0RF Rx Instructions: For 250 mg dose pack: take 500 mg today (day 1), then 250 mg for 4 days (days 2-5) prednisone 20 mg tablet 40 mg PO DAILY 5 Days Qty: 10 0RF benzonatate 100 mg capsule 100 mg PO BID PRN (Reason: cough) Qty: 20 0RF No Action hydroxyzine HCl 25 mg tablet bupropion HCl 150 mg tablet extended release 24 hr PO Follow-up/Referrals: Eladia,GLADYS Crockett [Primary Care Provider] - Time of Disposition: 11:47
== END 2025-03-12 11:50 | disposition home or self-care (01) ==
PROVIDERS: Emergency Provider Nurse Practitioner Family; PCP Nurse Practitioner
DX: J06.9 Acute upper respiratory infection, unspecified (principal); Z20.822 Contact with and (suspected) exposure to COVID-19
CPT/HCPCS: 87081; 87426; 87804; 87880; 99213; G0463